=== PATIENT | male | born 1935 | race Caucasian/White ===

== ENCOUNTER 2017-08-17 19:43 | Inpatient (IN) | payer MEDICARE, BC ==
[~2017-08-17] VITALS: Ht 170.2 cm; Wt 68.5 kg
[~2017-08-17 19:43] MED LIST: ALLO100T PO; HYDROXYUREA PO; IBUP-1955 PO; LORA-259 PO; LOSA50TA3 PO; NEXIUM; TRILIPIX; ZANTAC PO
--- NOTE | 2017-08-17 20:05 | NUR ---
RAINE RA FROM HOME. PT IS A 81 Y/O MALE. ACCOMPANIED BY FAMILY AT BEDSIDE. HERE FOR: FEVER, GENERALIZED WEAKNESS. PT HAVE A TEMP OF 102F. MEDICATION ADMINISTERED ORDERED. PT VERBALIZED THAT HE DENIES ANY PAST MEDICAL HX. HOWEVER FAMILY VERBALIZED THAT HE WAS RECENTLY DIAGNOSED WITH LUNG DISEASE. PT IS SPEAKING IN SLOW SENTENCES. VERBALIZED "I FEEL TIRED". PT ALSO VERBALIZED THAT HE'S BEEN HAVING FREQUENT URINATION X 4 DAYS. WCTM PT AT THIS TIME. WAITING FOR FURTHER PLAN OF CARE
[2017-08-17] MEDS ORDERED: IBUPROFEN 600 MG TABLET PO ONE (20:06)
[2017-08-17] MEDS ORDERED: ACETAMINOPHEN ES 500 MG TABLET PO ONE (20:06)
[2017-08-17] MEDS ORDERED: CEFTRIAXONE 1 G in IV DEXTROSE 5% 50 ML IV ONE (20:13)
[2017-08-17] MEDS ORDERED: IV NS 1000 ML 1,000 ML IV ONE ×2 (20:15→22:00)
[2017-08-17] MEDS ORDERED: ACETAMINOPHEN ES 500 MG TABLET ONE (20:48)
[2017-08-17] MEDS ORDERED: IBUPROFEN 600 MG TABLET ONE (20:48)
[2017-08-17] MEDS ORDERED: CEFTRIAXONE 1 G VIAL ONE (21:08)
[2017-08-17 21:14] LABS: BASOPHILS # (AUTO) 0.2 K/uL (0.0-8.0); EOSINOPHILS # (AUTO) 0.5 K/uL (0.0-0.7); HEMATOCRIT 39.1 % (40-50); HEMOGLOBIN 12.5 G/DL (14.0-18.0); LYMPHOCYTES # (AUTO) 1.1 K/UL (0.8-4.8); LYMPHOCYTES % (AUTO) 4.7 % (20.5-51.5); MEAN CORPUSCULAR HEMOGLOBIN 28.4 UUG (27.0-31.0); MEAN CORPUSCULAR HGB CONC 32 g/dL (32.0-37.0); MONOCYTES # (AUTO) 0.6 K/UL (0.1-1.30); MONOCYTES % (AUTO) 2.5 % (0.0-11.0); NEUTROPHILS # (AUTO) 21.7 K/UL (1.8-8.9); NEUTROPHILS % (AUTO) 89.8 % (38.5-71.5); PLATELET COUNT (AUTO) 426 K/UL (150-450); WHITE BLOOD COUNT (AUTO) 24.1 K/UL (4.0-11.2)
[2017-08-17 21:15] LABS: CARBON DIOXIDE 24 mmol/L (21-32); CHLORIDE 103 mmol/L (98-107); CREATININE 1.3 mg/dL (0.6-1.3); GLUCOSE 83 mg/dL (74-106); POTASSIUM 4.3 mmol/L (3.5-5.1); UREA NITROGEN, BLOOD 38 mg/dL (7-18)
[2017-08-17 21:21] LABS: ALANINE AMINOTRANSFERASE 14 U/L (16-63); ALKALINE PHOSPHATASE 84 U/L (50-136); ASPARTATE AMINOTRANSFERASE 14 U/L (15-37); BILIRUBIN,TOTAL 0.4 mg/dL (0.2-1.0); CREATINE KINASE, TOTAL 31 U/L (39-308); TOTAL PROTEIN, SERUM 5.9 g/dL (6.4-8.2)
[2017-08-17 21:30] LABS: EOSINOPHILS % (MANUAL) 3 % (0-8); LYMPHOCYTES % (MANUAL) 10 % (20-40); MONOCYTES % (MANUAL) 10 % (2-10); NEUTROPHILS % (MANUAL) 77 % (42-75)
--- NOTE | 2017-08-17 21:42 | NUR ---
MD PEREZ AWARE OF PT'S ELEVATED WBC. ABX INFUSED. FLUIDS INFUSED. PER "NOT CODE SEPSIS"
[2017-08-17] MEDS ORDERED: VANCOMYCIN IV 1,000 MG in IV DEXTROSE 5% 250 ML IV ONE (21:45)
[2017-08-17 22:02] LABS: ABG BASE EXCESS -3.7 mmol/L; ABG HCO3 19.5 mmol/L; ABG PCO2 29.5 mmHg (35.0-45.0); ABG PH 7.438 (7.350-7.450); ABG PO2 63.8 mmHg (75.0-100.0); ABG SITE RIGHT RADIAL; ABG TOTAL HEMOGLOBIN 11.1 G/dL (13.5-18.0); COHb 1.2 % (0.5-1.5); MetHb 0.4 % (0.0-1.5); O2Hb 90.8 % (94.0-97.0); VENT MODE Room Air
[2017-08-17] MEDS ORDERED: VANCOMYCIN IV 200 ML ONE (22:04)
--- NOTE | 2017-08-17 22:29 | NUR ---
URINE COLLECTED AND SENT TO LAB. PT IS ABLE TO AMBULATE FROM BED TO REST ROOM WITH MJINIMAL ASSISTS. PT VERBALIZED OF FEELING "BETTER". FAMILY VERBALIZED THAT PT LOOKS BETTER. NAD NOTED PENDING ADMIT
[2017-08-17] MEDS ORDERED: HYDROCODONE/APAP 10-325 MG TABLET PO PRN (22:30)
[2017-08-17] MEDS ORDERED: IBUPROFEN 600 MG TABLET PO PRN (22:30)
[2017-08-17] MEDS ORDERED: CEFTRIAXONE 1 G in IV DEXTROSE 5% 50 ML IV SCH (22:30)
[2017-08-17] MEDS ORDERED: HYDROCODONE/APAP 5-325MG TABLET PO PRN (22:30)
[2017-08-17] MEDS ORDERED: MAGNESIUM HYDROXIDE 30 ML LIQUID UDC PO PRN (22:30)
[2017-08-17] MEDS ORDERED: ENOXAPARIN SODIUM 40 MG/0.4 ML DISP.SYRIN SQ SCH (22:30)
[2017-08-17] MEDS ORDERED: Z GUARD REMEDY PASTE 57 GM TUBE TOP PRN (22:30)
[2017-08-17 22:42] LABS: *BILIRUBIN,URIN NEGATIVE (NEGATIVE); *BLOOD, URINE NEGATIVE (NEGATIVE); *CLARITY,URINE SLIGHTLY CLOUDY (CLEAR); *COLOR,URINE YELLOW (YELLOW); *KETONES,URINE NEGATIVE (NEGATIVE); *PROTEIN,URINE NEGATIVE (NEGATIVE); *UROBILINOGEN,URINE 0.2 E.U./dl (NORMAL); LEUKOCYTE ESTERASE ,URINE NEGATIVE (NEGATIVE); NITRITE, URINE NEGATIVE (NEGATIVE); UGLUCOSE NEGATIVE (NEGATIVE)
[2017-08-17 22:45] LABS: BACTERIA,URINE NONE SEEN /HPF (NONE SEEN); RBC,URINE 0-3 /HPF (0-3); SQUAMOUS EPITHELIAL CELL,UR NONE SEEN /HPF (NONE SEEN); WBC,URINE 0-3 /HPF (0-3)
--- NOTE | 2017-08-17 23:34 | NUR ---
REPORT GIVEN BY ZAY BARRETT; RECIEVING NURSE IS AWARE OF PT'S CURRENT CONDITION. AND WILL CONTINUE FURTHER PLAN OF CARE. REPORT GIVEN TO NAFISA MCGREGOR AWARE OF PT'S CURRENT CONDITION
--- NOTE | 2017-08-17 23:45 | NUR ---
RECEIVED PATIENT VIA GURNEY FROM ER WITH AND DAUGHTER AT BEDSIDE. PATIENT IS A/O X4. DENIES PAIN OR DISCOMFORT. ON O2 2L NC SATING WELL. NO RESP. DISTRESS NOTED. PLACED ON TELE ORDERED, SR WITH BBB. HEPLOCK INTACT AND PATENT, NOTED TO RIGHT UPPER ARM #20 GAUGE. ORIENTED PATIENT TO ROOM AND CALL LIGHT. BED ALARM ON. CALL LIGHT IN REACH. ALL NEEDS ATTENDED. WILL CONTINUE TO MONITOR.
[2017-08-18] VITALS: BP 91/51
[2017-08-18] MEDS ORDERED: ANAGRELIDE HCL 0.5 MG CAPSULE PO SCH
--- NOTE | 2017-08-18 | NUR ---
PATIENTS BP 91/51. IT WAS REPORTED FROM ER THAT PATIENT IS RUNNING LOW WITH BLOOD PRESSURE. ALL OTHER VSS. AFEBRILE. WILL CONTINUE TO MONITOR.
[2017-08-18] MEDS ORDERED: SENNOSIDES 1 TABLET ONE (00:19)
[2017-08-18] MEDS ORDERED: GABAPENTIN 400 MG CAPSULE ONE (00:20)
[2017-08-18] MEDS: GABAPENTIN 400 MG CAPSULE PO SCH ×2 (00:33→21:14)
[2017-08-18] MEDS: SENNOSIDES 1 TABLET PO SCH ×2 (00:33→21:14)
[2017-08-18] MEDS: IV NS 1000 ML 1,000 ML IV PRN ×2 (00:35→18:23)
[2017-08-18] MEDS ORDERED: TRAZODONE 50 MG TABLET ONE (01:09)
[2017-08-18 04:00] VITALS: BP 91/54
--- NOTE | 2017-08-18 06:30 | NUR ---
PATIENT AWAKE IN BED. ON TELE SR WITH BBB. IVF INFUSING ORDERED. CALL LIGHT IN REACH. ALL NEEDS ATTENDED.
[2017-08-18 06:47] LABS: CARBON DIOXIDE 21 mmol/L (21-32); CHLORIDE 108 mmol/L (98-107); CREATININE 1.2 mg/dL (0.6-1.3); GLUCOSE 97 mg/dL (74-106); MAGNESIUM 1.6 mg/dL (1.8-2.4); PHOSPHOROUS 4.2 mg/dL (2.5-4.9); UREA NITROGEN, BLOOD 34 mg/dL (7-18)
[2017-08-18 06:54] LABS: BASOPHILS # (AUTO) 0.3 K/uL (0.0-8.0); BASOPHILS % (AUTO) 1.4 % (0.0-2.0); EOSINOPHILS # (AUTO) 0.2 K/uL (0.0-0.7); EOSINOPHILS % (AUTO) 1.3 % (0.0-7.0); HEMATOCRIT 33.9 % (36.7-47.1); HEMOGLOBIN 10.7 g/dL (12.5-16.3); LYMPHOCYTES # (AUTO) 1.1 K/uL (20.0-40.0); LYMPHOCYTES % (AUTO) 5.7 % (20.5-51.5); MEAN CORPUSCULAR HEMOGLOBIN 28.6 uug (23.8-33.4); MEAN CORPUSCULAR HGB CONC 32 g/dL (32.5-36.3); MEAN CORPUSCULAR VOLUME 90.6 fL (73.0-96.2); MONOCYTES # (AUTO) 0.7 K/uL (2.0-10.0); MONOCYTES % (AUTO) 3.8 % (0.0-11.0); NEUTROPHILS # (AUTO) 17.3 K/uL (1.8-8.9); NEUTROPHILS % (AUTO) 87.8 % (38.5-71.5); PLATELET COUNT (AUTO) 320 K/uL (152-348); RED BLOOD CELL COUNT(AUTO) 3.74 MIL/uL (4.06-5.63); WHITE BLOOD COUNT (AUTO) 19.7 K/uL (3.6-10.2)
[2017-08-18] MEDS ORDERED: IBUPROFEN 400 MG TABLET PO PRN (08:30)
[2017-08-18] MEDS: LOSARTAN POTASSIUM 50 MG TABLET PO SCH (08:53)
[2017-08-18] MEDS: ALLOPURINOL 100 MG TABLET PO SCH (08:53)
[2017-08-18] MEDS: PANTOPRAZOLE SODIUM 40 MG TABLET.DR PO SCH (08:53)
[2017-08-18] MEDS ORDERED: HYDROXYUREA 500 MG CAPSULE PO SCH (09:00)
[2017-08-18] MEDS ORDERED: GABA600T2 PO (10:03)
[2017-08-18] MEDS ORDERED: FENO45CA PO (10:03)
[2017-08-18] MEDS ORDERED: DEXL60CA3 PO (10:06)
[2017-08-18] MEDS ORDERED: ANAG0.5C3 PO (10:06)
[2017-08-18] MEDS ORDERED: ONDA4TAB8 PO (10:19)
--- NOTE | 2017-08-18 10:28 | NUR ---
PATIENT SEEN AND EXAMINED BY DR IRVING WITH NEW ORDERS AND NOTED MAG LEVEL IS 1.6 MD AWARE WITH ORDERS.
[2017-08-18] MEDS: MAGNESIUM SULFATE/D5W 100 ML IV SCH ×2 (10:35→11:51)
[2017-08-18 10:48] LABS: BAND % (MANUAL) 1 % (0-10); LYMPHOCYTES % (MANUAL) 5 % (20-40); MONOCYTES % (MANUAL) 5 % (2-10); NEUTROPHILS % (MANUAL) 89 % (42-75)
[2017-08-18 11:00] VITALS: BP 124/63
[2017-08-18] MEDS: ONDANSETRON 4 MG/2 ML VIAL IV PRN ×2 (13:03→21:29)
--- NOTE | 2017-08-18 13:18 | NUR ---
PATIENTS HERE AND DR IRVING WENT BACK INTO THE ROOM SPOKE WITH HER UPDATED HER ON PATIENTS CONDITION AND ALSO TOOK THE PHONE NUMBER OF THE PATIENT [facility] AND STATED WILL CALL AND UPDATE HIM.
--- NOTE | 2017-08-18 13:43 | NUR ---
NEW ORDERS NOTED FOR CT OF THE ABDOMEN PELVIS AND CHEST FROM DR IRVING AND PATIENT EDUCATED AND CONSCENT OBTAINED AND DOCUMENTED.
[2017-08-18] MEDS ORDERED: IV NORMAL SALINE 250 ML IV ONE (13:54)
[2017-08-18] MEDS ORDERED: IOHEXOL 300MG/ML 100 ML INFUS..BTL ONE (13:54)
[2017-08-18] MEDS: ACETAMINOPHEN 325 MG TABLET PO PRN ×2 (15:03→21:14)
--- NOTE | 2017-08-18 15:10 | NUR ---
TEMP AT THIS TIME IS 100.7 PATIENT MEDICATED WITH TYLENOL AND COOLING MEASURES STARTED PATIENTS HERE AT THE BEDSIDE AND STATED THAT PATIENT TAKES TERSALON PERLS AT HOME AND NOW HE IS STARTING TO COUGH BUT PATIENT HAS NO ORDER PAGED DR IRVING AND LEFT HIM A MESSAGE WITH THERESA JIMENEZ NOT AVAILABLE WILL RETURN CALL.
[2017-08-18 15:30] VITALS: BP 117/59
--- NOTE | 2017-08-18 17:15 | NUR ---
DINNER SERVED AND HE ATE WITH GOOD APPETITE WITH ADEQUATE FLUIDS INTAKE MADE COMFORTABLE.
--- NOTE | 2017-08-18 18:26 | NUR ---
IV SITE INFILTERATED RESTARTED TO HIS LEFT UPPER ARM WITH ONE ATTEMPT.CONTINUE ON IVF ORDERED UP AND ASSITED TO THE BATHROOM PATIENT STATED FEELING BETTER AT THIS TIME.
--- NOTE | 2017-08-18 20:00 | NUR ---
RECEIVED PATIENT AWAKE IN BED. A/O X4. DENIES PAIN OR DISCOMFORT. ON O2 2L NC. NO RESP. DISTRESS NOTED. IVF INFUSING WELL, CALL LIGHT IN REACH. ALL NEEDS ATTENDED. WILL CONTINUE TO MONITOR.
[2017-08-18 20:30] VITALS: BP 98/59
[2017-08-18] MEDS ORDERED: CEFEPIME HCL 1 G in IV DEXTROSE 5% 50 ML IV SCH (21:00)
[2017-08-18] MEDS: AZITHROMYCIN 250 MG TABLET PO SCH (21:14)
[2017-08-18] MEDS: DOCUSATE SODIUM 250 MG CAPSULE PO SCH (21:14)
[2017-08-18] MEDS: ANAGRELIDE HCL 0.5 MG CAPSULE PO SCH (21:14)
[2017-08-18] MEDS: HYDROXYUREA 500 MG CAPSULE PO SCH ×2 (21:16)
[2017-08-18] MEDS: CEFEPIME HCL 1 G in IV DEXTROSE 5% 50 ML IV SCH (21:29)
[2017-08-19] MEDS: TRAZODONE 50 MG TABLET PO PRN ×2 (00:41→23:09)
--- NOTE | 2017-08-19 06:00 | NUR ---
PT IN ROOM ALERT ORIENTED IN NO ACUTE DISTRESS. PT NO FEVER OR C/O PAIN AT THIS TIME. PT CONTINUES WITH PRODUCTIVE COUGH BUT DENIES ANY SOB. CALL LIGHT PLACED WITHIN REACH. CONTINUE TO MONITOR.
[2017-08-19] MEDS: PANTOPRAZOLE SODIUM 40 MG TABLET.DR PO SCH (06:18)
--- NOTE | 2017-08-19 07:10 | NUR ---
received report from shift supervisor film processing nurse, patient in bed asleep, no evidence of distress noted, bed in low position, side rails up x2.
[2017-08-19 07:19] LABS: CARBON DIOXIDE 21 mmol/L (21-32); CHLORIDE 107 mmol/L (98-107); CREATININE 1.1 mg/dL (0.6-1.3); GLUCOSE 86 mg/dL (74-106); PHOSPHOROUS 3.3 mg/dL (2.5-4.9); POTASSIUM 3.9 mmol/L (3.5-5.1); UREA NITROGEN, BLOOD 26 mg/dL (7-18)
[2017-08-19 07:51] LABS: BASOPHILS # (AUTO) 0.1 K/uL (0.0-8.0); BASOPHILS % (AUTO) 0.6 % (0.0-2.0); EOSINOPHILS # (AUTO) 0.2 K/uL (0.0-0.7); HEMATOCRIT 35.8 % (36.7-47.1); HEMOGLOBIN 11.2 g/dL (12.5-16.3); LYMPHOCYTES # (AUTO) 1.1 K/uL (20.0-40.0); LYMPHOCYTES % (AUTO) 5.4 % (20.5-51.5); MEAN CORPUSCULAR HEMOGLOBIN 28.1 uug (23.8-33.4); MEAN CORPUSCULAR HGB CONC 31 g/dL (32.5-36.3); MEAN CORPUSCULAR VOLUME 90.3 fL (73.0-96.2); MONOCYTES # (AUTO) 1.2 K/uL (2.0-10.0); MONOCYTES % (AUTO) 5.9 % (0.0-11.0); NEUTROPHILS # (AUTO) 17.1 K/uL (1.8-8.9); NEUTROPHILS % (AUTO) 87.1 % (38.5-71.5); PLATELET COUNT (AUTO) 295 K/uL (152-348); RED BLOOD CELL COUNT(AUTO) 3.97 MIL/uL (4.06-5.63); WHITE BLOOD COUNT (AUTO) 19.6 K/uL (3.6-10.2)
[2017-08-19] MEDS: IV NS 1000 ML 1,000 ML IV PRN ×2 (08:23→22:23)
[2017-08-19] MEDS: ALLOPURINOL 100 MG TABLET PO SCH (08:33)
[2017-08-19] MEDS: LOSARTAN POTASSIUM 50 MG TABLET PO SCH ×2 (08:33→08:40)
[2017-08-19] MEDS: FENOFIBRATE NANOCRYSTALLIZED 48 MG TABLET PO SCH (08:34)
[2017-08-19 11:08] LABS: BAND % (MANUAL) 2 % (0-10); EOSINOPHILS % (MANUAL) 1 % (0-8); LYMPHOCYTES % (MANUAL) 5 % (20-40); MONOCYTES % (MANUAL) 6 % (2-10); NEUTROPHILS % (MANUAL) 86 % (42-75)
[2017-08-19 11:39] VITALS: BP 109/63
[2017-08-19 16:17] VITALS: BP 113/65
--- NOTE | 2017-08-19 16:21 | NUR ---
Trigger for Sepsis. Patient is 81 y/o male who present with c/o of weakness and fever. Per MD notes, SIRS with fever and leukocytosis, poss early sepsis Tolerating current diet, PO intake has been improving ,eating 50-100% of meals Anthropometry:current weight is 140lb,BMI 21.9,physical assessment report suggest no overt malnutrition. Labs:WBC-19.6(H)-trending down, RBC-3.97(L),HGB/HCT-11.2/35.8(L/L),BUN-26,ALBUMIN-2.8 Medication:Colace,IVFD5%,Protonix, DNI Protonix to be administered 1hr before or 1hr after food nutrition diagnosis: Altered nutrition labs related to likely early Sepsis vs other factors as evidenced by WBC 24 on 08/17 nutrition intervention: no intervention at this time, monitor PO intake,weight and labs Monitor:PO intake,weight,labs Outcomes: maintain 75-100% of PO intake during hospital stay Improve in labs no N/V/D/C Addendum: 08/19/17 at [address] Amended: Links added.
[2017-08-19] MEDS: SENNOSIDES 1 TABLET PO SCH (16:53)
[2017-08-19] MEDS: ONDANSETRON 4 MG/2 ML VIAL IV PRN (16:53)
--- NOTE | 2017-08-19 18:41 | NUR ---
Patient has been anxious throughout shift, with multiple concerns about having a manicure and going to the restroom, and oxygen. He is cooperative, but very adamant about having things a certain way. Otherwise, patient is in no distress, mild productive cough, ambulates with standby assist.
--- NOTE | 2017-08-19 19:30 | NUR ---
PT RECEIVED IN BED, AWAKE. A/OX3. ABLE TO MAKE NEEDS KNOWN. PLEASANT ON APPROACH. IN STABLE CONDITION. NO C/O PAIN AT THIS TIME. IVF INFUSING. ON 2L NC, TOLERATING WELL. AFEBRILE. SAFETY MEASURES IMPLEMENTED. CALL LIGHT WITHIN REACH.
[2017-08-19 20:00] VITALS: BP 120/56
[2017-08-19] MEDS: CEFEPIME HCL 1 G in IV DEXTROSE 5% 50 ML IV SCH (20:04)
[2017-08-19] MEDS: DOCUSATE SODIUM 250 MG CAPSULE PO SCH (20:04)
[2017-08-19] MEDS: ANAGRELIDE HCL 0.5 MG CAPSULE PO SCH (20:04)
[2017-08-19] MEDS: AZITHROMYCIN 250 MG TABLET PO SCH (20:04)
[2017-08-19] MEDS: GABAPENTIN 400 MG CAPSULE PO SCH (20:04)
[2017-08-19] MEDS: HYDROXYUREA 500 MG CAPSULE PO SCH (20:09)
--- NOTE | 2017-08-19 21:00 | NUR ---
ADMINISTERED TYLENOL FOR FEVER OF 99.4. ROOM TEMPERATURE COOLED. BLANKETS REMOVED. WILL CONTINUE TO MONITOR.
[2017-08-19] MEDS: ACETAMINOPHEN 325 MG TABLET PO PRN (21:05)
[2017-08-19] MEDS: LORAZEPAM 1 MG TABLET PO PRN (22:23)
--- NOTE | 2017-08-19 22:25 | NUR ---
PT STATES HE FEELS ANXIOUS, RESTLESS IN BED. PT REQUEST ATIVAN. ADMINISTERED ORDERED. WILL CONT TO MONITOR.
--- NOTE | 2017-08-19 22:54 | NUR ---
PT NOW AFEBRILE. TEMP OF 97.9F
--- NOTE | 2017-08-20 | NUR ---
PT KEPT NPO AFTER MIDNIGHT DUE TO SCHEDULED ABDOMINAL ULTRASOUND
[2017-08-20 05:20] VITALS: BP 129/78
--- NOTE | 2017-08-20 05:44 | NUR ---
END OF SHIFT NOTES. PT SLEPT INTERMITTENTLY THROUGHOUT THE NIGHT. IN STABLE CONDITION. IV ABX INFUSED. IVF INFUSING. CONT ON 2L NC, TOLERATING WELL. AFEBRILE. ALL NEEDS ATTENDED. SAFETY MAINTAINED. CALL LIGHT WITHIN REACH.
[2017-08-20] MEDS: PANTOPRAZOLE SODIUM 40 MG TABLET.DR PO SCH (06:03)
--- NOTE | 2017-08-20 07:00 | NUR ---
RECEIVED REPORT FROM LAMINATOR NURSE, PATIENT IN BED ASLEEP, NO EVIDENCE OF DISTRESS NOTED, BED IN LOW POSITION, SIDE RAILS UP X2. BED ALARM ON.
[2017-08-20] MEDS: ALLOPURINOL 100 MG TABLET PO SCH (09:03)
[2017-08-20] MEDS: FENOFIBRATE NANOCRYSTALLIZED 48 MG TABLET PO SCH (09:03)
[2017-08-20] MEDS: LOSARTAN POTASSIUM 50 MG TABLET PO SCH (09:03)
[2017-08-20 11:19] VITALS: BP 130/76
[2017-08-20 15:00] VITALS: BP 117/64
--- NOTE | 2017-08-20 17:00 | NUR ---
patient removed IV from his arm. replaced with new on right forearm.
[2017-08-20] MEDS: SENNOSIDES 1 TABLET PO SCH (17:21)
[2017-08-20] MEDS: LORAZEPAM 1 MG TABLET PO PRN (18:01)
[2017-08-20] MEDS: ONDANSETRON 4 MG/2 ML VIAL IV PRN (18:02)
--- NOTE | 2017-08-20 18:52 | NUR ---
patient has had multiple requests and anxiety throughout the day. He continues to have urinary urgency and tries to get out of bed without assistance. Patient is unsteady on his feet, and needs frequent reminding that he must call for help. Patient is currently in no distress bed in low position, side rails up x2.
--- NOTE | 2017-08-20 19:30 | NUR ---
PT RECEIVED IN BED, AWAKE. A/OX3. ABLE TO MAKE NEEDS KNOWN. V/S STABLE. IN NO ACUTE DISTRESS. NO C/O PAIN AT THIS TIME. IVF INFUSING. ON 2LNC, TOLERATING WELL. SAFETY MEASURES IMPLEMENTED. BED ALARM SET. CALL LIGHT WITHIN REACH.
[2017-08-20 20:00] VITALS: BP 128/83
[2017-08-20] MEDS: CEFEPIME HCL 1 G in IV DEXTROSE 5% 50 ML IV SCH (20:12)
[2017-08-20] MEDS: ANAGRELIDE HCL 0.5 MG CAPSULE PO SCH (20:14)
[2017-08-20] MEDS: GABAPENTIN 400 MG CAPSULE PO SCH (20:14)
[2017-08-20] MEDS: AZITHROMYCIN 250 MG TABLET PO SCH (20:14)
[2017-08-20] MEDS: DOCUSATE SODIUM 250 MG CAPSULE PO SCH (20:19)
[2017-08-20] MEDS: HYDROXYUREA 500 MG CAPSULE PO SCH (20:19)
[2017-08-20] MEDS ORDERED: FUROSEMIDE 40 MG/4 ML VIAL IV ONE (20:45)
[2017-08-20] MEDS: TRAZODONE 50 MG TABLET PO PRN (22:04)
[2017-08-21 05:08] VITALS: BP 99/50
[2017-08-21] MEDS: PANTOPRAZOLE SODIUM 40 MG TABLET.DR PO SCH (06:17)
--- NOTE | 2017-08-21 06:25 | NUR ---
END OF SHIFT NOTES. PT SLEPT INTERMITTENTLY THROUGHOUT SHIFT. IN STABLE CONDITION. PT SEEN TRYING TO GO TO BATHROOM WITHOUT ASSIST AND INCREASING CONFUSION. DIAPER PLACED DUE TO INCREASED URINATION. BED ALARM WAS SET. PT SAFETY MAINTAINED. IV INTACT AND PATENT. IV FLUIDS D/C. ON 2L NC, NO C/O OF SOB. ALL NEEDS ATTENDED. CALL LIGHT WITHIN REACH.
[2017-08-21 07:06] LABS: BASOPHILS # (AUTO) 0.3 K/uL (0.0-8.0); BASOPHILS % (AUTO) 1.6 % (0.0-2.0); EOSINOPHILS # (AUTO) 0.3 K/uL (0.0-0.7); EOSINOPHILS % (AUTO) 1.4 % (0.0-7.0); HEMATOCRIT 36.8 % (36.7-47.1); HEMOGLOBIN 11.6 g/dL (12.5-16.3); LYMPHOCYTES # (AUTO) 1.1 K/uL (20.0-40.0); LYMPHOCYTES % (AUTO) 6.4 % (20.5-51.5); MEAN CORPUSCULAR HGB CONC 31 g/dL (32.5-36.3); MEAN CORPUSCULAR VOLUME 89.4 fL (73.0-96.2); MONOCYTES # (AUTO) 1.8 K/uL (2.0-10.0); MONOCYTES % (AUTO) 9.8 % (0.0-11.0); NEUTROPHILS # (AUTO) 14.4 K/uL (1.8-8.9); NEUTROPHILS % (AUTO) 80.8 % (38.5-71.5); PLATELET COUNT (AUTO) 252 K/uL (152-348); RED BLOOD CELL COUNT(AUTO) 4.12 MIL/uL (4.06-5.63); WHITE BLOOD COUNT (AUTO) 17.8 K/uL (3.6-10.2)
--- NOTE | 2017-08-21 07:10 | NUR ---
RECEIVED REPORT FROM NIGHT SHFIT NURSE, PATIENT IN BED ASLEEP, NO EVIDENCE OF DISTRESS NOTED, BED IN LOW POSITION, SIDE RAILS UP X2. BED ALARM SET.
[2017-08-21 07:17] LABS: CARBON DIOXIDE 22 mmol/L (21-32); CHLORIDE 105 mmol/L (98-107); CREATININE 1.2 mg/dL (0.6-1.3); GLUCOSE 81 mg/dL (74-106); MAGNESIUM 1.7 mg/dL (1.8-2.4); PHOSPHOROUS 3.2 mg/dL (2.5-4.9); POTASSIUM 3.9 mmol/L (3.5-5.1); UREA NITROGEN, BLOOD 18 mg/dL (7-18)
[2017-08-21 08:18] VITALS: BP 93/51
[2017-08-21] MEDS: LOSARTAN POTASSIUM 50 MG TABLET PO SCH (08:24)
[2017-08-21] MEDS: ONDANSETRON 4 MG/2 ML VIAL IV PRN ×2 (08:25→17:26)
[2017-08-21] MEDS: ALLOPURINOL 100 MG TABLET PO SCH (08:25)
[2017-08-21] MEDS: FENOFIBRATE NANOCRYSTALLIZED 48 MG TABLET PO SCH (08:37)
[2017-08-21 10:40] LABS: BAND % (MANUAL) 1 % (0-10); BASOPHILS % (MANUAL) 1 % (0-2); EOSINOPHILS % (MANUAL) 2 % (0-8); LYMPHOCYTES % (MANUAL) 6 % (20-40); MONOCYTES % (MANUAL) 12 % (2-10); NEUTROPHILS % (MANUAL) 78 % (42-75)
[2017-08-21 11:05] VITALS: BP 97/54
[2017-08-21] MEDS ORDERED: ANAG0.5C3 PO (14:00)
[2017-08-21] MEDS ORDERED: AZIT250T6 PO (14:00)
[2017-08-21] MEDS ORDERED: CEFE1VIA10 IV (14:00)
--- NOTE | 2017-08-21 14:30 | NUR ---
PATIENT WAS EVALUATED BY PHYSICAL THERAPY. UNABLE TO AMBULATE MORE THAN 50 FEET.
[2017-08-21] MEDS: MAGNESIUM SULFATE/D5W 100 ML IV SCH ×2 (14:58→17:02)
[2017-08-21 15:10] VITALS: BP 106/67
[2017-08-21] MEDS: SENNOSIDES 1 TABLET PO SCH (17:06)
--- NOTE | 2017-08-21 18:13 | NUR ---
PATIENT IS IN BED, NO EVIDENCE OF DISTRESS NOTED, BED IN LOW POSITION, SIDE RAILS UP X2. BED ALARM ON. PATIENT HASN'T TOLERATED MEALS WELL. NAUSEA PRESENT AT BREAKFAST AND DINNER TIME. FAMILY BROUGHT IN SHAKES FOR THE PATIENT.
--- NOTE | 2017-08-21 18:15 | NUR ---
NO MALE BED AVAILABLE IN ARU, PATIENT WILL BE TRANSFERRED TOMORROW MORNING.
[2017-08-21 20:00] VITALS: BP 100/59
[2017-08-21] MEDS: DOCUSATE SODIUM 250 MG CAPSULE PO SCH (20:40)
[2017-08-21] MEDS: GABAPENTIN 400 MG CAPSULE PO SCH (20:41)
[2017-08-21] MEDS: AZITHROMYCIN 250 MG TABLET PO SCH (20:41)
[2017-08-21] MEDS: HYDROXYUREA 500 MG CAPSULE PO SCH (20:42)
[2017-08-21] MEDS: CEFEPIME HCL 1 G in IV DEXTROSE 5% 50 ML IV SCH (20:43)
[2017-08-21] MEDS: ANAGRELIDE HCL 0.5 MG CAPSULE PO SCH (20:44)
[2017-08-21] MEDS: LORAZEPAM 1 MG TABLET PO PRN (23:40)
[2017-08-22] MEDS: TRAZODONE 50 MG TABLET PO PRN (00:35)
[2017-08-22 05:08] VITALS: BP 97/58
[2017-08-22] MEDS: PANTOPRAZOLE SODIUM 40 MG TABLET.DR PO SCH (06:28)
[2017-08-22 06:46] LABS: CARBON DIOXIDE 22 mmol/L (21-32); CHLORIDE 104 mmol/L (98-107); CREATININE 1.2 mg/dL (0.6-1.3); GLUCOSE 86 mg/dL (74-106); POTASSIUM 4.1 mmol/L (3.5-5.1); UREA NITROGEN, BLOOD 18 mg/dL (7-18)
[2017-08-22] MEDS: FENOFIBRATE NANOCRYSTALLIZED 48 MG TABLET PO SCH (08:19)
[2017-08-22] MEDS: ALLOPURINOL 100 MG TABLET PO SCH (08:19)
[2017-08-22] MEDS: LOSARTAN POTASSIUM 50 MG TABLET PO SCH (08:20)
--- NOTE | 2017-08-22 08:30 | NUR ---
AWAKE ALERT ORTX3 SOME FORGETFUL BUT ABLE TO FOLLOW SIMPLE DIRECTION WELL NO SOB OR PAIN EAT BREAKFAST MOD AMT ON FALL /ASPIRATION PRECAUTION CALL ROUSE IN REACH AND BED ALARM ON
[2017-08-22 09:05] LABS: BASOPHILS # (AUTO) 0.3 K/uL (0.0-8.0); BASOPHILS % (AUTO) 1.4 % (0.0-2.0); EOSINOPHILS # (AUTO) 0.4 K/uL (0.0-0.7); HEMATOCRIT 33.9 % (36.7-47.1); HEMOGLOBIN 10.6 g/dL (12.5-16.3); LYMPHOCYTES # (AUTO) 1.2 K/uL (20.0-40.0); LYMPHOCYTES % (AUTO) 6.4 % (20.5-51.5); MEAN CORPUSCULAR HEMOGLOBIN 28.2 uug (23.8-33.4); MEAN CORPUSCULAR HGB CONC 31 g/dL (32.5-36.3); MEAN CORPUSCULAR VOLUME 89.9 fL (73.0-96.2); MONOCYTES # (AUTO) 1.5 K/uL (2.0-10.0); MONOCYTES % (AUTO) 8.1 % (0.0-11.0); NEUTROPHILS # (AUTO) 15.1 K/uL (1.8-8.9); NEUTROPHILS % (AUTO) 82.1 % (38.5-71.5); PLATELET COUNT (AUTO) 231 K/uL (152-348); RED BLOOD CELL COUNT(AUTO) 3.77 MIL/uL (4.06-5.63); WHITE BLOOD COUNT (AUTO) 18.4 K/uL (3.6-10.2)
[2017-08-22 11:00] VITALS: BP 92/56
--- NOTE | 2017-08-22 13:00 | NUR ---
BED WAS AVAILABLE AT [facility] TODAY PATIENT WAS INFORM OF D/C TO TODAY D/C INSTRUCTION REGARDING CONTINUE HOME MEDICINE AND NEED TO F/U WITH OWN PMD AND EDUCATION PK GIVEN ,VERBALIZES UNDERSTAND AND SIGNS D/C SHEET
--- NOTE | 2017-08-22 14:00 | NUR ---
REPORT GIVEN TO NURSE AT [facility]
[2017-08-22 14:07] LABS: BAND % (MANUAL) 2 % (0-10); BASOPHILS % (MANUAL) 1 % (0-2); LYMPHOCYTES % (MANUAL) 8 % (20-40); MONOCYTES % (MANUAL) 4 % (2-10); NEUTROPHILS % (MANUAL) 85 % (42-75)
--- NOTE | 2017-08-22 14:30 | NUR ---
FAMILY WAS INFORM OF TRANSFER /D/C TO ARU TODAY TO ROOM 124A CONDITION STABLE
--- NOTE | 2017-08-22 15:00 | NUR ---
D/C TO REHAB UNIT VIA W/C CONDITION STABLE ACCOMPANIES WITH
[2017-08-22] MEDS ORDERED: HYDR500C2 PO (17:08)
[2017-08-22] MEDS ORDERED: LACTOBACILLUS RHAMNOSUS GG 1 EACH CAPSULE PO SCH (21:00)
[2017-08-23] MEDS ORDERED: FLUT1BLS IH (17:34)
== END 2017-08-22 15:00 | DRG 871 ==
LOC: ER 19:45 → TELE 23:25 → MED 08-18 19:14
PROVIDERS: ADMIT Internal Medicine; ATTEND Internal Medicine
DX: A41.9 Sepsis, unspecified organism (principal); N17.0 Acute kidney failure with tubular necrosis; J69.0 Pneumonitis due to inhalation of food and vomit; E43 Unspecified severe protein-calorie malnutrition; J84.9 Interstitial pulmonary disease, unspecified; E88.09 Other disorders of plasma-protein metabolism, not elsewhere classified; R16.2 Hepatomegaly with splenomegaly, not elsewhere classified; D45 Polycythemia vera; D63.8 Anemia in other chronic diseases classified elsewhere; J98.11 Atelectasis; E83.42 Hypomagnesemia; E78.5 Hyperlipidemia, unspecified; G25.81 Restless legs syndrome; K21.9 Gastro-esophageal reflux disease without esophagitis; M19.90 Unspecified osteoarthritis, unspecified site; Z88.2 Allergy status to sulfonamides; M62.50 Muscle wasting and atrophy, not elsewhere classified, unspecified site; R53.1 Weakness; Z68.23 Body mass index [BMI] 23.0-23.9, adult; I10 Essential (primary) hypertension; M10.9 Gout, unspecified; Z96.652 Presence of left artificial knee joint
CPT/HCPCS: 36415; 36600; 70030-TC; 71010; 71260; 76705; 83605; 83735; 84100; 85025; 85610; 87040; 87070; 87400; 93005; 93307; 97116; 97530; A4663; J0692; J0696; J1940; J2405; J3370; J3475; J7030; J7050; J7060; Q0144; Q9967

== ENCOUNTER 2017-08-22 15:22 | Inpatient (IN) | payer MEDICARE, BC ==
[~2017-08-22] VITALS: Ht 170.2 cm; Wt 63.5 kg
[~2017-08-22 15:22] MED LIST changes: +ANAG0.5C3 PO; +AZIT250T13 PO; +CEFE1VIA10 IV; +DEXL60CA3 PO; +FENO45CA PO; +GABA600T2 PO; -LOSA50TA3 PO; -NEXIUM; +ONDA4TAB8 PO; -TRILIPIX
[2017-08-22 15:37] VITALS: BP 105/60
[2017-08-22] MEDS ORDERED: AZITHROMYCIN 250 MG TABLET PO SCH (16:45)
[2017-08-22] MEDS ORDERED: HYDR500C2 PO (17:08)
[2017-08-22] MEDS ORDERED: IBUPROFEN 600 MG TABLET PO PRN (18:30)
[2017-08-22] MEDS: SENNOSIDES 1 TABLET PO SCH ×2 (18:33→20:15)
[2017-08-22] MEDS: AZITHROMYCIN 250 MG TABLET PO SCH (19:21)
[2017-08-22] MEDS: ANAGRELIDE HCL 0.5 MG CAPSULE PO SCH (20:15)
[2017-08-22 20:26] VITALS: BP 105/64
[2017-08-22] MEDS: LORAZEPAM 1 MG TABLET PO PRN (20:52)
[2017-08-22] MEDS ORDERED: CEFEPIME HCL 1 G in IV DEXTROSE 5% 50 ML IV SCH (21:00)
[2017-08-22] MEDS ORDERED: LORAZEPAM 1 MG TABLET ONE (21:00)
[2017-08-22] MEDS ORDERED: ANAGRELIDE HCL 0.5 MG CAPSULE PO SCH (21:00)
[2017-08-22] MEDS: HYDROXYUREA 500 MG CAPSULE PO SCH (21:00)
[2017-08-23] MEDS ORDERED: LORAZEPAM 1 MG TABLET ONE (02:40)
[2017-08-23] MEDS ORDERED: CEFEPIME HCL 1 G VIAL ONE (03:00)
[2017-08-23] MEDS: LORAZEPAM 1 MG TABLET PO PRN ×2 (03:06→21:34)
[2017-08-23] MEDS ORDERED: CEFEPIME HCL 1 G in IV DEXTROSE 5% 50 ML IV SCH ×2 (06:00→12:00)
[2017-08-23 07:00] VITALS: BP 124/74
[2017-08-23] MEDS ORDERED: PANTOPRAZOLE SODIUM 40 MG TABLET.DR PO SCH (07:27)
[2017-08-23] MEDS ORDERED: IBUPROFEN 400 MG TABLET PO PRN (07:30)
[2017-08-23] MEDS ORDERED: FENOFIBRIC ACID 45 MG PO SCH (09:00)
[2017-08-23] MEDS ORDERED: ZANTAC 150 MG PO SCH (09:00)
[2017-08-23] MEDS ORDERED: ANAGRELIDE HCL 0.5 MG CAPSULE PO SCH ×2 (09:00)
[2017-08-23] MEDS: ALLOPURINOL 100 MG TABLET PO SCH (09:16)
[2017-08-23] MEDS: FENOFIBRATE NANOCRYSTALLIZED 48 MG TABLET PO SCH (12:31)
[2017-08-23] MEDS: CEFEPIME HCL 1 G in IV DEXTROSE 5% 50 ML IV SCH (17:33)
[2017-08-23] MEDS ORDERED: FLUT1BLS IH (17:34)
[2017-08-23] MEDS: AZITHROMYCIN 250 MG TABLET PO SCH (17:35)
[2017-08-23 19:30] VITALS: BP 120/73
[2017-08-23] MEDS: SENNOSIDES 1 TABLET PO SCH (21:29)
[2017-08-23] MEDS: ONDANSETRON ODT 4 MG TAB.RAPDIS SL SCH (21:30)
[2017-08-23] MEDS: FAMOTIDINE 20 MG TABLET PO SCH (21:30)
[2017-08-23] MEDS: GABAPENTIN 400 MG CAPSULE PO SCH (21:30)
[2017-08-23] MEDS: ANAGRELIDE HCL 0.5 MG CAPSULE PO SCH (21:31)
[2017-08-23] MEDS: TRAZODONE 50 MG TABLET PO SCH (21:31)
[2017-08-23] MEDS: HYDROXYUREA 500 MG CAPSULE PO SCH (21:33)
[2017-08-24] MEDS: LORAZEPAM 1 MG TABLET PO PRN (03:22)
[2017-08-24] MEDS: CEFEPIME HCL 1 G in IV DEXTROSE 5% 50 ML IV SCH ×2 (05:03→17:36)
[2017-08-24 07:05] LABS: BASOPHILS # (AUTO) 0.6 K/uL (0.0-8.0); BASOPHILS % (AUTO) 3.3 % (0.0-2.0); EOSINOPHILS # (AUTO) 0.5 K/uL (0.0-0.7); EOSINOPHILS % (AUTO) 2.4 % (0.0-7.0); HEMATOCRIT 34.3 % (36.7-47.1); HEMOGLOBIN 10.9 g/dL (12.5-16.3); LYMPHOCYTES # (AUTO) 1.2 K/uL (20.0-40.0); LYMPHOCYTES % (AUTO) 6.1 % (20.5-51.5); MEAN CORPUSCULAR HEMOGLOBIN 28.7 uug (23.8-33.4); MEAN CORPUSCULAR HGB CONC 32 g/dL (32.5-36.3); MEAN CORPUSCULAR VOLUME 89.9 fL (73.0-96.2); MONOCYTES # (AUTO) 1.3 K/uL (2.0-10.0); NEUTROPHILS # (AUTO) 15.6 K/uL (1.8-8.9); NEUTROPHILS % (AUTO) 81.2 % (38.5-71.5); PLATELET COUNT (AUTO) 220 K/uL (152-348); RED BLOOD CELL COUNT(AUTO) 3.81 MIL/uL (4.06-5.63); WHITE BLOOD COUNT (AUTO) 19.3 K/uL (3.6-10.2)
[2017-08-24 07:35] LABS: CARBON DIOXIDE 22 mmol/L (21-32); CHLORIDE 102 mmol/L (98-107); CREATININE 1.2 mg/dL (0.6-1.3); GLUCOSE 82 mg/dL (74-106); MAGNESIUM 1.7 mg/dL (1.8-2.4); PHOSPHOROUS 3.4 mg/dL (2.5-4.9); POTASSIUM 4.1 mmol/L (3.5-5.1); UREA NITROGEN, BLOOD 17 mg/dL (7-18)
[2017-08-24 08:00] VITALS: BP 110/67
[2017-08-24] MEDS: ALLOPURINOL 100 MG TABLET PO SCH (09:17)
[2017-08-24] MEDS: FLUTICASONE/VILANTEROL 1 EACH BLST.W.DEV INH SCH (09:17)
[2017-08-24] MEDS: FENOFIBRATE NANOCRYSTALLIZED 48 MG TABLET PO SCH (09:17)
[2017-08-24] MEDS: FAMOTIDINE 20 MG TABLET PO SCH ×2 (09:17→20:35)
[2017-08-24] MEDS ORDERED: MAGNESIUM OXIDE 400 MG TABLET PO ONE (15:00)
[2017-08-24] MEDS: AZITHROMYCIN 250 MG TABLET PO SCH (17:33)
[2017-08-24 19:45] VITALS: BP 103/64
[2017-08-24] MEDS: GABAPENTIN 400 MG CAPSULE PO SCH (20:34)
[2017-08-24] MEDS: ONDANSETRON ODT 4 MG TAB.RAPDIS SL SCH (20:35)
[2017-08-24] MEDS: SENNOSIDES 1 TABLET PO SCH (20:35)
[2017-08-24] MEDS: ANAGRELIDE HCL 0.5 MG CAPSULE PO SCH (20:36)
[2017-08-24] MEDS: HYDROXYUREA 500 MG CAPSULE PO SCH (20:36)
[2017-08-24] MEDS: TRAZODONE 50 MG TABLET PO SCH (21:41)
[2017-08-24] MEDS: ACIDOPHILUS/BULGARICUS CHEW TAB PO SCH (21:41)
[2017-08-25] MEDS: CEFEPIME HCL 1 G in IV DEXTROSE 5% 50 ML IV SCH ×2 (05:58→17:16)
[2017-08-25] MEDS: ACIDOPHILUS/BULGARICUS CHEW TAB PO SCH ×3 (05:58→21:02)
[2017-08-25 07:54] VITALS: BP 90/58
[2017-08-25] MEDS: FAMOTIDINE 20 MG TABLET PO SCH ×2 (08:41→20:45)
[2017-08-25] MEDS: ALLOPURINOL 100 MG TABLET PO SCH (08:41)
[2017-08-25] MEDS: FLUTICASONE/VILANTEROL 1 EACH BLST.W.DEV INH SCH (08:41)
[2017-08-25] MEDS: FENOFIBRATE NANOCRYSTALLIZED 48 MG TABLET PO SCH (09:09)
[2017-08-25] MEDS ORDERED: SENNOSIDES 1 TABLET PO SCH (17:00)
[2017-08-25] MEDS: SENNOSIDES 1 TABLET PO SCH (17:15)
[2017-08-25] MEDS: AZITHROMYCIN 250 MG TABLET PO SCH (17:32)
[2017-08-25] MEDS ORDERED: LEVOFLOXACIN 500 MG TABLET PO SCH ×2 (18:00→18:15)
[2017-08-25] MEDS ORDERED: LEVOFLOXACIN 500 MG TABLET PO ONE ×2 (18:30→21:00)
[2017-08-25 19:30] VITALS: BP 111/65
[2017-08-25] MEDS: HYDROXYUREA 500 MG CAPSULE PO SCH (20:43)
[2017-08-25] MEDS: GABAPENTIN 400 MG CAPSULE PO SCH (20:44)
[2017-08-25] MEDS: ANAGRELIDE HCL 0.5 MG CAPSULE PO SCH (20:44)
[2017-08-25] MEDS: ONDANSETRON ODT 4 MG TAB.RAPDIS SL SCH (20:45)
[2017-08-26] MEDS: TRAZODONE 50 MG TABLET PO SCH (00:03)
[2017-08-26] MEDS: ACIDOPHILUS/BULGARICUS CHEW TAB PO SCH ×3 (06:18→21:01)
[2017-08-26 07:16] LABS: BASOPHILS # (AUTO) 0.2 K/uL (0.0-8.0); BASOPHILS % (AUTO) 0.8 % (0.0-2.0); EOSINOPHILS # (AUTO) 0.7 K/uL (0.0-0.7); EOSINOPHILS % (AUTO) 2.8 % (0.0-7.0); HEMATOCRIT 38.3 % (40-50); HEMOGLOBIN 11.8 G/DL (14.0-18.0); LYMPHOCYTES # (AUTO) 1.6 K/UL (0.8-4.8); LYMPHOCYTES % (AUTO) 6.4 % (20.5-51.5); MEAN CORPUSCULAR HGB CONC 31 g/dL (32.0-37.0); MONOCYTES # (AUTO) 1.1 K/UL (0.1-1.30); MONOCYTES % (AUTO) 4.2 % (0.0-11.0); NEUTROPHILS # (AUTO) 21.7 K/UL (1.8-8.9); NEUTROPHILS % (AUTO) 85.8 % (38.5-71.5); PLATELET COUNT (AUTO) 285 K/UL (150-450); RED BLOOD CELL COUNT(AUTO) 4.21 MIL/UL (4.7-6.1)
[2017-08-26 07:35] LABS: CARBON DIOXIDE 24 mmol/L (21-32); CHLORIDE 105 mmol/L (98-107); CREATININE 1.3 mg/dL (0.6-1.3); GLUCOSE 87 mg/dL (74-106); MAGNESIUM 1.9 mg/dL (1.8-2.4); PHOSPHOROUS 3.3 mg/dL (2.5-4.9); POTASSIUM 4.5 mmol/L (3.5-5.1); UREA NITROGEN, BLOOD 15 mg/dL (7-18)
[2017-08-26 08:12] LABS: WHITE BLOOD COUNT (AUTO) 25.3 K/UL (4.0-11.2)
[2017-08-26] MEDS: FLUTICASONE/VILANTEROL 1 EACH BLST.W.DEV INH SCH (09:00)
[2017-08-26] MEDS: FAMOTIDINE 20 MG TABLET PO SCH ×2 (10:04→21:01)
[2017-08-26] MEDS: ALLOPURINOL 100 MG TABLET PO SCH (10:04)
[2017-08-26] MEDS: FENOFIBRATE NANOCRYSTALLIZED 48 MG TABLET PO SCH (10:05)
[2017-08-26 11:01] LABS: BAND % (MANUAL) 2 % (0-10); EOSINOPHILS % (MANUAL) 3 % (0-8); LYMPHOCYTES % (MANUAL) 7 % (20-40); MONOCYTES % (MANUAL) 5 % (2-10); NEUTROPHILS % (MANUAL) 83 % (42-75)
[2017-08-26 11:28] VITALS: BP 98/48
[2017-08-26] MEDS: SENNOSIDES 1 TABLET PO SCH (16:59)
[2017-08-26 20:58] VITALS: BP 133/64
[2017-08-26] MEDS: ONDANSETRON ODT 4 MG TAB.RAPDIS SL SCH (21:02)
[2017-08-26] MEDS: GABAPENTIN 400 MG CAPSULE PO SCH (21:02)
[2017-08-26] MEDS: ANAGRELIDE HCL 0.5 MG CAPSULE PO SCH (21:04)
[2017-08-26] MEDS: HYDROXYUREA 500 MG CAPSULE PO SCH (21:09)
[2017-08-26] MEDS: CEFEPIME HCL 1 G in IV DEXTROSE 5% 50 ML IV SCH (21:24)
[2017-08-27] MEDS: TRAZODONE 50 MG TABLET PO SCH (00:04)
[2017-08-27] MEDS: ACIDOPHILUS/BULGARICUS CHEW TAB PO SCH ×3 (05:41→21:31)
[2017-08-27 08:58] VITALS: BP 106/64
[2017-08-27] MEDS: ASPIRIN 81 MG TAB.CHEW PO SCH ×2 (09:00→10:05)
[2017-08-27] MEDS: ALLOPURINOL 100 MG TABLET PO SCH (10:05)
[2017-08-27] MEDS: FAMOTIDINE 20 MG TABLET PO SCH ×2 (10:05→20:23)
[2017-08-27] MEDS: CEFEPIME HCL 1 G in IV DEXTROSE 5% 50 ML IV SCH ×2 (10:05→20:23)
[2017-08-27] MEDS: FENOFIBRATE NANOCRYSTALLIZED 48 MG TABLET PO SCH (10:06)
[2017-08-27] MEDS: FLUTICASONE/VILANTEROL 1 EACH BLST.W.DEV INH SCH (10:15)
[2017-08-27] MEDS: SENNOSIDES 1 TABLET PO SCH (17:08)
[2017-08-27] MEDS: ANAGRELIDE HCL 0.5 MG CAPSULE PO SCH (20:21)
[2017-08-27] MEDS: HYDROXYUREA 500 MG CAPSULE PO SCH (20:22)
[2017-08-27] MEDS: GABAPENTIN 400 MG CAPSULE PO SCH (20:22)
[2017-08-27] MEDS: ONDANSETRON ODT 4 MG TAB.RAPDIS SL SCH (20:23)
[2017-08-27 21:18] VITALS: BP 109/70
[2017-08-28] MEDS: TRAZODONE 50 MG TABLET PO SCH (00:42)
[2017-08-28] MEDS: ACIDOPHILUS/BULGARICUS CHEW TAB PO SCH ×3 (06:08→21:04)
[2017-08-28 07:50] LABS: BASOPHILS # (AUTO) 0.7 K/uL (0.0-8.0); BASOPHILS % (AUTO) 3.8 % (0.0-2.0); CARBON DIOXIDE 27 mmol/L (21-32); CHLORIDE 107 mmol/L (98-107); CREATININE 1.4 mg/dL (0.6-1.3); EOSINOPHILS # (AUTO) 0.6 K/uL (0.0-0.7); GLUCOSE 91 mg/dL (74-106); HEMATOCRIT 36.1 % (36.7-47.1); HEMOGLOBIN 11.5 g/dL (12.5-16.3); LYMPHOCYTES # (AUTO) 1.3 K/uL (20.0-40.0); MEAN CORPUSCULAR HGB CONC 32 g/dL (32.5-36.3); MEAN CORPUSCULAR VOLUME 91.3 fL (73.0-96.2); MONOCYTES # (AUTO) 0.7 K/uL (2.0-10.0); MONOCYTES % (AUTO) 3.5 % (0.0-11.0); NEUTROPHILS # (AUTO) 15.9 K/uL (1.8-8.9); NEUTROPHILS % (AUTO) 82.7 % (38.5-71.5); PLATELET COUNT (AUTO) 382 K/uL (152-348); POTASSIUM 4.5 mmol/L (3.5-5.1); RED BLOOD CELL COUNT(AUTO) 3.96 MIL/uL (4.06-5.63); UREA NITROGEN, BLOOD 17 mg/dL (7-18); WHITE BLOOD COUNT (AUTO) 19.2 K/uL (3.6-10.2)
[2017-08-28] MEDS: ASPIRIN 81 MG TAB.CHEW PO SCH (09:00)
[2017-08-28] MEDS: FAMOTIDINE 20 MG TABLET PO SCH ×2 (09:20→21:04)
[2017-08-28] MEDS: ALLOPURINOL 100 MG TABLET PO SCH (09:20)
[2017-08-28] MEDS: FLUTICASONE/VILANTEROL 1 EACH BLST.W.DEV INH SCH (09:20)
[2017-08-28] MEDS: FENOFIBRATE NANOCRYSTALLIZED 48 MG TABLET PO SCH (09:21)
[2017-08-28] MEDS: CEFEPIME HCL 1 G in IV DEXTROSE 5% 50 ML IV SCH ×2 (09:21→20:33)
[2017-08-28 09:54] VITALS: BP 130/83
[2017-08-28 10:50] LABS: BAND % (MANUAL) 3 % (0-10); BASOPHILS % (MANUAL) 1 % (0-2); EOSINOPHILS % (MANUAL) 3 % (0-8); LYMPHOCYTES % (MANUAL) 7 % (20-40); MONOCYTES % (MANUAL) 6 % (2-10); NEUTROPHILS % (MANUAL) 80 % (42-75)
[2017-08-28] MEDS: SENNOSIDES 1 TABLET PO SCH (17:13)
[2017-08-28] MEDS: GABAPENTIN 400 MG CAPSULE PO SCH (20:28)
[2017-08-28] MEDS: ANAGRELIDE HCL 0.5 MG CAPSULE PO SCH (20:28)
[2017-08-28] MEDS: ONDANSETRON ODT 4 MG TAB.RAPDIS SL SCH (20:29)
[2017-08-28] MEDS: HYDROXYUREA 500 MG CAPSULE PO SCH (20:32)
[2017-08-28 21:38] VITALS: BP 106/67
[2017-08-29] MEDS: TRAZODONE 50 MG TABLET PO SCH (00:08)
[2017-08-29] MEDS: ACIDOPHILUS/BULGARICUS CHEW TAB PO SCH ×3 (05:59→21:03)
[2017-08-29 07:12] VITALS: BP 106/66
[2017-08-29] MEDS: ALLOPURINOL 100 MG TABLET PO SCH (08:51)
[2017-08-29] MEDS: FAMOTIDINE 20 MG TABLET PO SCH ×2 (08:51→21:03)
[2017-08-29] MEDS: FENOFIBRATE NANOCRYSTALLIZED 48 MG TABLET PO SCH (08:51)
[2017-08-29] MEDS: FLUTICASONE/VILANTEROL 1 EACH BLST.W.DEV INH SCH (08:51)
[2017-08-29] MEDS: CEFEPIME HCL 1 G in IV DEXTROSE 5% 50 ML IV SCH (08:52)
[2017-08-29] MEDS: ASPIRIN 81 MG TAB.CHEW PO SCH (08:52)
[2017-08-29] MEDS: SENNOSIDES 1 TABLET PO SCH (18:03)
[2017-08-29 19:30] VITALS: BP 104/56
[2017-08-29] MEDS: ONDANSETRON ODT 4 MG TAB.RAPDIS SL SCH (21:02)
[2017-08-29] MEDS: ANAGRELIDE HCL 0.5 MG CAPSULE PO SCH (21:03)
[2017-08-29] MEDS: GABAPENTIN 400 MG CAPSULE PO SCH (21:03)
[2017-08-29] MEDS: HYDROXYUREA 500 MG CAPSULE PO SCH (21:05)
[2017-08-30] MEDS: TRAZODONE 50 MG TABLET PO SCH (00:31)
[2017-08-30] MEDS: ACIDOPHILUS/BULGARICUS CHEW TAB PO SCH ×3 (05:55→21:07)
[2017-08-30 07:09] VITALS: BP 106/68
[2017-08-30] MEDS: FENOFIBRATE NANOCRYSTALLIZED 48 MG TABLET PO SCH (08:02)
[2017-08-30] MEDS: ASPIRIN 81 MG TAB.CHEW PO SCH (08:02)
[2017-08-30] MEDS: FLUTICASONE/VILANTEROL 1 EACH BLST.W.DEV INH SCH (08:02)
[2017-08-30] MEDS: ALLOPURINOL 100 MG TABLET PO SCH (08:02)
[2017-08-30] MEDS: FAMOTIDINE 20 MG TABLET PO SCH ×2 (08:02→20:35)
[2017-08-30] MEDS: SENNOSIDES 1 TABLET PO SCH (17:45)
[2017-08-30 19:30] VITALS: BP 103/63
[2017-08-30] MEDS: ONDANSETRON ODT 4 MG TAB.RAPDIS SL SCH (20:35)
[2017-08-30] MEDS: GABAPENTIN 400 MG CAPSULE PO SCH (20:35)
[2017-08-30] MEDS: ANAGRELIDE HCL 0.5 MG CAPSULE PO SCH (20:36)
[2017-08-30] MEDS: HYDROXYUREA 500 MG CAPSULE PO SCH (20:39)
[2017-08-31] MEDS: TRAZODONE 50 MG TABLET PO SCH (00:02)
[2017-08-31] MEDS: ACIDOPHILUS/BULGARICUS CHEW TAB PO SCH ×3 (06:12→21:17)
[2017-08-31 07:08] VITALS: BP 105/70
[2017-08-31] MEDS: ASPIRIN 81 MG TAB.CHEW PO SCH (09:00)
[2017-08-31] MEDS: FLUTICASONE/VILANTEROL 1 EACH BLST.W.DEV INH SCH (09:04)
[2017-08-31] MEDS: ALLOPURINOL 100 MG TABLET PO SCH (09:05)
[2017-08-31] MEDS: FAMOTIDINE 20 MG TABLET PO SCH ×2 (09:05→21:17)
[2017-08-31] MEDS: FENOFIBRATE NANOCRYSTALLIZED 48 MG TABLET PO SCH (09:05)
[2017-08-31] MEDS: SENNOSIDES 1 TABLET PO SCH (17:22)
[2017-08-31 20:35] VITALS: BP 114/70
[2017-08-31] MEDS: ONDANSETRON ODT 4 MG TAB.RAPDIS SL SCH (21:17)
[2017-08-31] MEDS: HYDROXYUREA 500 MG CAPSULE PO SCH (21:18)
[2017-08-31] MEDS: GABAPENTIN 400 MG CAPSULE PO SCH (21:18)
[2017-08-31] MEDS: ANAGRELIDE HCL 0.5 MG CAPSULE PO SCH (21:53)
[2017-08-31] MEDS ORDERED: ANAGRELIDE HCL 0.5 MG CAPSULE ONE (22:06)
[2017-09-01] MEDS: TRAZODONE 50 MG TABLET PO SCH (00:41)
[2017-09-01] MEDS: ACIDOPHILUS/BULGARICUS CHEW TAB PO SCH ×3 (06:29→21:06)
[2017-09-01 08:00] VITALS: BP 116/77
[2017-09-01 08:13] LABS: CARBON DIOXIDE 25 mmol/L (21-32); CHLORIDE 109 mmol/L (98-107); CREATININE 1.6 mg/dL (0.6-1.3); GLUCOSE 69 mg/dL (74-106); MAGNESIUM 1.9 mg/dL (1.8-2.4); MEAN CORPUSCULAR HEMOGLOBIN 28.8 UUG (27.0-31.0); PHOSPHOROUS 4.3 mg/dL (2.5-4.9); POTASSIUM 4.8 mmol/L (3.5-5.1); UREA NITROGEN, BLOOD 23 mg/dL (7-18)
[2017-09-01 08:15] LABS: BASOPHILS # (AUTO) 0.3 K/uL (0.0-8.0); BASOPHILS % (AUTO) 1.3 % (0.0-2.0); EOSINOPHILS # (AUTO) 0.7 K/uL (0.0-0.7); EOSINOPHILS % (AUTO) 2.7 % (0.0-7.0); HEMATOCRIT 39.4 % (40-50); HEMOGLOBIN 12.6 G/DL (14.0-18.0); LYMPHOCYTES # (AUTO) 1.8 K/UL (0.8-4.8); LYMPHOCYTES % (AUTO) 6.7 % (20.5-51.5); MEAN CORPUSCULAR HGB CONC 32 g/dL (32.0-37.0); MEAN CORPUSCULAR VOLUME 90.2 FL (82.0-92.0); MONOCYTES # (AUTO) 0.5 K/UL (0.1-1.30); NEUTROPHILS # (AUTO) 23.6 K/UL (1.8-8.9); NEUTROPHILS % (AUTO) 87.3 % (38.5-71.5); PLATELET COUNT (AUTO) 864 K/UL (150-450); RED BLOOD CELL COUNT(AUTO) 4.37 MIL/UL (4.7-6.1); WHITE BLOOD COUNT (AUTO) 26.9 K/UL (4.0-11.2)
[2017-09-01 08:34] LABS: BAND % (MANUAL) 3 % (0-10); LYMPHOCYTES % (MANUAL) 8 % (20-40); MONOCYTES % (MANUAL) 5 % (2-10); NEUTROPHILS % (MANUAL) 84 % (42-75)
[2017-09-01] MEDS: FLUTICASONE/VILANTEROL 1 EACH BLST.W.DEV INH SCH (09:10)
[2017-09-01] MEDS: FENOFIBRATE NANOCRYSTALLIZED 48 MG TABLET PO SCH (09:10)
[2017-09-01] MEDS: ALLOPURINOL 100 MG TABLET PO SCH (09:10)
[2017-09-01] MEDS: ASPIRIN 81 MG TAB.CHEW PO SCH (09:10)
[2017-09-01] MEDS: FAMOTIDINE 20 MG TABLET PO SCH ×2 (09:10→20:33)
[2017-09-01] MEDS ORDERED: HYDROXYUREA 500 MG CAPSULE PO ONE (12:30)
[2017-09-01] MEDS ORDERED: FUROSEMIDE 20 MG TABLET PO ONE (12:30)
[2017-09-01] MEDS: SENNOSIDES 1 TABLET PO SCH (17:20)
[2017-09-01 20:16] VITALS: BP 111/57
[2017-09-01] MEDS: GABAPENTIN 400 MG CAPSULE PO SCH (20:32)
[2017-09-01] MEDS: ANAGRELIDE HCL 0.5 MG CAPSULE PO SCH (20:33)
[2017-09-01] MEDS: ONDANSETRON ODT 4 MG TAB.RAPDIS SL SCH (20:33)
[2017-09-01] MEDS: HYDROXYUREA 500 MG CAPSULE PO SCH (20:36)
[2017-09-02] MEDS: TRAZODONE 50 MG TABLET PO SCH (00:43)
[2017-09-02] MEDS: ACIDOPHILUS/BULGARICUS CHEW TAB PO SCH ×2 (06:25→14:31)
[2017-09-02 07:30] VITALS: BP 121/76
[2017-09-02 07:32] LABS: ALANINE AMINOTRANSFERASE 16 U/L (16-63); ALKALINE PHOSPHATASE 103 U/L (50-136); ASPARTATE AMINOTRANSFERASE 21 U/L (15-37); BILIRUBIN,TOTAL 0.3 mg/dL (0.2-1.0); CARBON DIOXIDE 27 mmol/L (21-32); CHLORIDE 109 mmol/L (98-107); CREATININE 1.7 mg/dL (0.6-1.3); GLUCOSE 81 mg/dL (74-106); MAGNESIUM 1.8 mg/dL (1.8-2.4); PHOSPHOROUS 4.9 mg/dL (2.5-4.9); POTASSIUM 5.1 mmol/L (3.5-5.1); TOTAL PROTEIN, SERUM 5.5 g/dL (6.4-8.2); UREA NITROGEN, BLOOD 30 mg/dL (7-18)
[2017-09-02 07:34] LABS: BASOPHILS # (AUTO) 0.8 K/uL (0.0-8.0); BASOPHILS % (AUTO) 4.1 % (0.0-2.0); EOSINOPHILS # (AUTO) 0.5 K/uL (0.0-0.7); EOSINOPHILS % (AUTO) 2.8 % (0.0-7.0); HEMATOCRIT 36.4 % (36.7-47.1); HEMOGLOBIN 11.3 g/dL (12.5-16.3); LYMPHOCYTES # (AUTO) 1.6 K/uL (20.0-40.0); LYMPHOCYTES % (AUTO) 8.3 % (20.5-51.5); MEAN CORPUSCULAR HEMOGLOBIN 28.4 uug (23.8-33.4); MEAN CORPUSCULAR HGB CONC 31 g/dL (32.5-36.3); MEAN CORPUSCULAR VOLUME 91.4 fL (73.0-96.2); MONOCYTES # (AUTO) 0.5 K/uL (2.0-10.0); MONOCYTES % (AUTO) 2.8 % (0.0-11.0); NEUTROPHILS # (AUTO) 15.6 K/uL (1.8-8.9); PLATELET COUNT (AUTO) 690 K/uL (152-348); RED BLOOD CELL COUNT(AUTO) 3.99 MIL/uL (4.06-5.63)
[2017-09-02] MEDS: FAMOTIDINE 20 MG TABLET PO SCH (08:58)
[2017-09-02] MEDS: ALLOPURINOL 100 MG TABLET PO SCH (08:58)
[2017-09-02] MEDS: FENOFIBRATE NANOCRYSTALLIZED 48 MG TABLET PO SCH (08:59)
[2017-09-02] MEDS: ASPIRIN 81 MG TAB.CHEW PO SCH (09:00)
[2017-09-02] MEDS: FLUTICASONE/VILANTEROL 1 EACH BLST.W.DEV INH SCH (09:05)
== END 2017-09-02 16:05 | disposition home health service (06) | DRG 871 ==
PROVIDERS: ADMIT Physical Medicine & Rehabilitation Pain Medicine; ATTEND Physical Medicine & Rehabilitation Pain Medicine
DX: A41.9 Sepsis, unspecified organism (principal); J18.9 Pneumonia, unspecified organism; N17.0 Acute kidney failure with tubular necrosis; J84.9 Interstitial pulmonary disease, unspecified; E46 Unspecified protein-calorie malnutrition; I11.0 Hypertensive heart disease with heart failure; I27.20 Pulmonary hypertension, unspecified; G62.9 Polyneuropathy, unspecified; I50.9 Heart failure, unspecified; J98.11 Atelectasis; E83.42 Hypomagnesemia; D45 Polycythemia vera; D63.8 Anemia in other chronic diseases classified elsewhere; E78.5 Hyperlipidemia, unspecified; R26.9 Unspecified abnormalities of gait and mobility; M19.90 Unspecified osteoarthritis, unspecified site; K21.9 Gastro-esophageal reflux disease without esophagitis; I25.10 Atherosclerotic heart disease of native coronary artery without angina pectoris; I10 Essential (primary) hypertension; R53.1 Weakness; G25.81 Restless legs syndrome; M10.9 Gout, unspecified; R29.6 Repeated falls; I35.0 Nonrheumatic aortic (valve) stenosis; Z88.2 Allergy status to sulfonamides; R11.0 Nausea; T37.8X5A Adverse effect of other specified systemic anti-infectives and antiparasitics, initial encounter; Y92.239 Unspecified place in hospital as the place of occurrence of the external cause
CPT/HCPCS: 36415; 70450; 71010; 83735; 84100; 85025; 92526; 92610; 93005; 97110; 97112; 97116; 97530; 97535; J0692; J7050; J7060; Q0144; Q0162

== ENCOUNTER 2017-11-22 15:00 | Inpatient (IN) | payer MEDICARE, BC ==
[~2017-11-22] VITALS: Ht 170.2 cm; Wt 64.9 kg
[~2017-11-22 15:00] MED LIST changes: +FLUT1BLS IH; +HYDR500C2 PO; -HYDROXYUREA PO
[2017-11-22] MEDS ORDERED: IV NORMAL SALINE 1000 ML BAG IV ONE (15:15)
[2017-11-22 15:27] LABS: BASOPHILS # (AUTO) 0.2 K/uL (0.0-8.0); BASOPHILS % (AUTO) 0.7 % (0.0-2.0); EOSINOPHILS # (AUTO) 0.2 K/uL (0.0-0.7); EOSINOPHILS % (AUTO) 0.8 % (0.0-7.0); HEMATOCRIT 36.9 % (36.7-47.1); HEMOGLOBIN 11.3 g/dL (12.5-16.3); LYMPHOCYTES # (AUTO) 1.3 K/uL (20.0-40.0); LYMPHOCYTES % (AUTO) 5.8 % (20.5-51.5); MEAN CORPUSCULAR HEMOGLOBIN 27.7 uug (23.8-33.4); MEAN CORPUSCULAR HGB CONC 31 g/dL (32.5-36.3); MEAN CORPUSCULAR VOLUME 90.4 fL (73.0-96.2); MONOCYTES # (AUTO) 1.1 K/uL (2.0-10.0); MONOCYTES % (AUTO) 4.7 % (0.0-11.0); NEUTROPHILS # (AUTO) 20.1 K/uL (1.8-8.9); PLATELET COUNT (AUTO) 581 K/uL (152-348); RED BLOOD CELL COUNT(AUTO) 4.08 MIL/uL (4.06-5.63); WHITE BLOOD COUNT (AUTO) 22.9 K/uL (3.6-10.2)
[2017-11-22 15:41] LABS: ALANINE AMINOTRANSFERASE 18 U/L (16-63); ALKALINE PHOSPHATASE 101 U/L (50-136); ASPARTATE AMINOTRANSFERASE 27 U/L (15-37); BILIRUBIN,DIRECT 0.1 mg/dL (0.0-0.2); BILIRUBIN,TOTAL 0.4 mg/dL (0.2-1.0); CARBON DIOXIDE 24 mmol/L (21-32); CHLORIDE 102 mmol/L (98-107); CREATININE 1.5 mg/dL (0.6-1.3); GLUCOSE 97 mg/dL (74-106); POTASSIUM 4.2 mmol/L (3.5-5.1); TOTAL PROTEIN, SERUM 6.6 g/dL (6.4-8.2); UREA NITROGEN, BLOOD 35 mg/dL (7-18)
[2017-11-22] MEDS ORDERED: CEFTRIAXONE 1 G VIAL ONE (15:42)
[2017-11-22] MEDS ORDERED: CEFTRIAXONE 1 G in IV DEXTROSE 5% 50 ML IV ONE (15:45)
[2017-11-22] MEDS ORDERED: AZITHROMYCIN IV 500 MG in IV DEXTROSE 5% 250 ML IV ONE (16:15)
[2017-11-22] MEDS ORDERED: ONDANSETRON 4 MG/2 ML VIAL IV PRN (16:30)
[2017-11-22] MEDS ORDERED: Z GUARD REMEDY PASTE 57 GM TUBE TOP PRN (16:30)
[2017-11-22] MEDS ORDERED: ALBUTEROL SULFATE 2.5 MG/3 ML NEBU ONE (16:30)
[2017-11-22] MEDS ORDERED: ACETAMINOPHEN 325 MG TABLET PO PRN (16:30)
[2017-11-22] MEDS ORDERED: IBUPROFEN 600 MG TABLET PO PRN (16:30)
[2017-11-22] MEDS ORDERED: MAGNESIUM HYDROXIDE 30 ML LIQUID UDC PO PRN (16:30)
[2017-11-22] MEDS ORDERED: HYDROCODONE/APAP 5-325MG TABLET PO PRN (16:30)
[2017-11-22] MEDS ORDERED: ALBUTEROL SULFATE 2.5 MG/3 ML NEBU NEB PRN (16:30)
[2017-11-22] MEDS ORDERED: AZITHROMYCIN 500 MG VIAL IV ONE (16:32)
[2017-11-22 16:37] LABS: *BILIRUBIN,URIN NEGATIVE (NEGATIVE); *BLOOD, URINE NEGATIVE (NEGATIVE); *CLARITY,URINE CLEAR (CLEAR); *COLOR,URINE YELLOW (YELLOW); *KETONES,URINE NEGATIVE (NEGATIVE); *PROTEIN,URINE NEGATIVE (NEGATIVE); *UROBILINOGEN,URINE 0.2 E.U./dl (NORMAL); LEUKOCYTE ESTERASE ,URINE NEGATIVE (NEGATIVE); NITRITE, URINE NEGATIVE (NEGATIVE); UGLUCOSE NEGATIVE (NEGATIVE)
[2017-11-22 16:43] LABS: BACTERIA,URINE NONE SEEN /HPF (NONE SEEN); RBC,URINE 0-3 /HPF (0-3); SQUAMOUS EPITHELIAL CELL,UR NONE SEEN /HPF (NONE SEEN)
[2017-11-22] MEDS ORDERED: ZANTAC 150 MG PO SCH (17:00)
[2017-11-22] MEDS ORDERED: IBUPROFEN 400 MG TABLET PO PRN (17:00)
[2017-11-22 18:00] VITALS: BP 90/52
[2017-11-22] MEDS ORDERED: VANCOMYCIN IV 1 G in PREMIXED 0 EACH IV ONE (19:45)
[2017-11-22 20:00] VITALS: BP 104/60
[2017-11-22] MEDS: PIPERACILLIN/TAZOBACTAM/D5W 50 ML IV SCH (20:10)
[2017-11-22] MEDS: IV NS 1000 ML 1,000 ML IV PRN (20:11)
[2017-11-22] MEDS: GABAPENTIN 400 MG CAPSULE PO SCH (20:31)
[2017-11-22] MEDS ORDERED: ENOXAPARIN SODIUM 30 MG/0.3 ML DISP.SYRIN SQ SCH (21:00)
[2017-11-22] MEDS ORDERED: DOCUSATE SODIUM 250 MG CAPSULE PO SCH (21:00)
[2017-11-22] MEDS ORDERED: HYDROXYUREA 500 MG CAPSULE PO SCH (21:00)
[2017-11-23 00:02] VITALS: BP 90/55
[2017-11-23] MEDS: PIPERACILLIN/TAZOBACTAM/D5W 50 ML IV SCH ×5 (01:16→23:47)
[2017-11-23 04:00] VITALS: BP 92/52
[2017-11-23] MEDS ORDERED: PANTOPRAZOLE SODIUM 40 MG TABLET.DR PO SCH (07:00)
[2017-11-23 07:41] LABS: BASOPHILS # (AUTO) 0.7 K/uL (0.0-8.0); BASOPHILS % (AUTO) 2.7 % (0.0-2.0); EOSINOPHILS # (AUTO) 0.2 K/uL (0.0-0.7); EOSINOPHILS % (AUTO) 0.8 % (0.0-7.0); HEMATOCRIT 32.4 % (36.7-47.1); LYMPHOCYTES # (AUTO) 1.5 K/uL (20.0-40.0); LYMPHOCYTES % (AUTO) 6.1 % (20.5-51.5); MEAN CORPUSCULAR HEMOGLOBIN 27.9 uug (23.8-33.4); MEAN CORPUSCULAR HGB CONC 31 g/dL (32.5-36.3); MEAN CORPUSCULAR VOLUME 90.2 fL (73.0-96.2); MONOCYTES # (AUTO) 2.1 K/uL (2.0-10.0); MONOCYTES % (AUTO) 8.6 % (0.0-11.0); NEUTROPHILS # (AUTO) 20.2 K/uL (1.8-8.9); NEUTROPHILS % (AUTO) 81.8 % (38.5-71.5); PLATELET COUNT (AUTO) 472 K/uL (152-348); RED BLOOD CELL COUNT(AUTO) 3.59 MIL/uL (4.06-5.63); WHITE BLOOD COUNT (AUTO) 24.7 K/uL (3.6-10.2)
[2017-11-23 07:59] LABS: CARBON DIOXIDE 23 mmol/L (21-32); CHLORIDE 105 mmol/L (98-107); CREATININE 1.3 mg/dL (0.6-1.3); GLUCOSE 85 mg/dL (74-106); MAGNESIUM 1.9 mg/dL (1.8-2.4); PHOSPHOROUS 3.9 mg/dL (2.5-4.9); POTASSIUM 3.8 mmol/L (3.5-5.1); UREA NITROGEN, BLOOD 28 mg/dL (7-18)
[2017-11-23] MEDS: FAMOTIDINE 20 MG TABLET PO SCH (08:40)
[2017-11-23] MEDS: FLUTICASONE/VILANTEROL 1 EACH BLST.W.DEV IH SCH ×2 (08:40→09:00)
[2017-11-23] MEDS: ALLOPURINOL 100 MG TABLET PO SCH (08:40)
[2017-11-23 08:48] LABS: BAND % (MANUAL) 1 % (0-10); EOSINOPHILS % (MANUAL) 1 % (0-8); LYMPHOCYTES % (MANUAL) 4 % (20-40); MONOCYTES % (MANUAL) 6 % (2-10); NEUTROPHILS % (MANUAL) 87 % (42-75)
[2017-11-23] MEDS ORDERED: ASPIRIN EC 81 MG TABLET.DR PO SCH (09:00)
[2017-11-23] MEDS ORDERED: FENOFIBRIC ACID 45 MG PO SCH (09:00)
[2017-11-23] MEDS: FENOFIBRATE NANOCRYSTALLIZED 48 MG TABLET PO SCH (10:16)
[2017-11-23 11:25] VITALS: BP 94/53
[2017-11-23 15:50] VITALS: BP 100/65
[2017-11-23] MEDS ORDERED: CEFTRIAXONE 1 G in IV DEXTROSE 5% 50 ML IV SCH (16:00)
[2017-11-23] MEDS: IV NS 1000 ML 1,000 ML IV PRN (16:37)
[2017-11-23] MEDS: ONDANSETRON ODT 4 MG TAB.RAPDIS SL SCH (16:38)
[2017-11-23] MEDS: ASPIRIN EC 81 MG TABLET.DR PO SCH (16:38)
[2017-11-23] MEDS: ANAGRELIDE HCL 0.5 MG CAPSULE PO SCH (16:39)
[2017-11-23] MEDS: DOCUSATE SODIUM 100 MG CAPSULE PO SCH (16:40)
[2017-11-23] MEDS: HYDROXYUREA 500 MG CAPSULE PO SCH (16:40)
[2017-11-23] MEDS: SENNOSIDES 1 TABLET PO SCH (16:52)
[2017-11-23] MEDS ORDERED: AZITHROMYCIN IV 500 MG in IV DEXTROSE 5% 250 ML IV SCH (17:00)
[2017-11-23] MEDS: GABAPENTIN 400 MG CAPSULE PO SCH (20:22)
[2017-11-23] MEDS: LACTOBACILLUS RHAMNOSUS GG 1 EACH CAPSULE PO SCH (20:22)
[2017-11-23 20:23] VITALS: BP 91/57
[2017-11-23] MEDS: VANCOMYCIN IV 1 G in PREMIXED 0 EACH IV SCH (20:23)
[2017-11-23] MEDS ORDERED: SENNOSIDES 1 TABLET PO SCH (21:00)
[2017-11-23] MEDS ORDERED: ENOXAPARIN SODIUM 40 MG/0.4 ML DISP.SYRIN SQ SCH (21:00)
[2017-11-24 00:05] VITALS: BP 101/47
[2017-11-24] MEDS: LORAZEPAM 1 MG TABLET PO PRN ×2 (00:43→22:54)
[2017-11-24 04:00] VITALS: BP 97/49
[2017-11-24] MEDS: PIPERACILLIN/TAZOBACTAM/D5W 50 ML IV SCH ×3 (05:45→18:39)
[2017-11-24 08:27] LABS: BASOPHILS # (AUTO) 0.7 K/uL (0.0-8.0); EOSINOPHILS # (AUTO) 0.6 K/uL (0.0-0.7); EOSINOPHILS % (AUTO) 2.5 % (0.0-7.0); HEMATOCRIT 32.9 % (36.7-47.1); HEMOGLOBIN 10.3 g/dL (12.5-16.3); LYMPHOCYTES # (AUTO) 1.7 K/uL (20.0-40.0); LYMPHOCYTES % (AUTO) 7.4 % (20.5-51.5); MEAN CORPUSCULAR HEMOGLOBIN 28.1 uug (23.8-33.4); MEAN CORPUSCULAR HGB CONC 31 g/dL (32.5-36.3); MONOCYTES # (AUTO) 1.5 K/uL (2.0-10.0); MONOCYTES % (AUTO) 6.4 % (0.0-11.0); NEUTROPHILS # (AUTO) 18.8 K/uL (1.8-8.9); NEUTROPHILS % (AUTO) 80.7 % (38.5-71.5); PLATELET COUNT (AUTO) 510 K/uL (152-348); RED BLOOD CELL COUNT(AUTO) 3.66 MIL/uL (4.06-5.63); WHITE BLOOD COUNT (AUTO) 23.3 K/uL (3.6-10.2)
[2017-11-24] MEDS: LACTOBACILLUS RHAMNOSUS GG 1 EACH CAPSULE PO SCH ×2 (08:30→20:20)
[2017-11-24] MEDS: FAMOTIDINE 20 MG TABLET PO SCH (08:30)
[2017-11-24] MEDS: ALLOPURINOL 100 MG TABLET PO SCH (08:30)
[2017-11-24] MEDS: FENOFIBRATE NANOCRYSTALLIZED 48 MG TABLET PO SCH (08:40)
[2017-11-24] MEDS: FLUTICASONE/VILANTEROL 1 EACH BLST.W.DEV IH SCH (08:40)
[2017-11-24 08:41] LABS: ALANINE AMINOTRANSFERASE 26 U/L (16-63); ALKALINE PHOSPHATASE 71 U/L (50-136); ASPARTATE AMINOTRANSFERASE 32 U/L (15-37); BILIRUBIN,TOTAL 0.2 mg/dL (0.2-1.0); CARBON DIOXIDE 22 mmol/L (21-32); CHLORIDE 110 mmol/L (98-107); CHOLESTEROL 103 mg/dL (<200); CREATININE 1.4 mg/dL (0.6-1.3); GLUCOSE 82 mg/dL (74-106); HDL CHOLESTEROL 44 mg/dL (40-60); MAGNESIUM 2.2 mg/dL (1.8-2.4); PHOSPHOROUS 4.1 mg/dL (2.5-4.9); POTASSIUM 3.9 mmol/L (3.5-5.1); TOTAL PROTEIN, SERUM 5.6 g/dL (6.4-8.2); TRIGLYCERIDES 41 MG/DL (30-150); UREA NITROGEN, BLOOD 28 mg/dL (7-18)
[2017-11-24 10:00] LABS: BAND % (MANUAL) 1 % (0-10); EOSINOPHILS % (MANUAL) 2 % (0-8); LYMPHOCYTES % (MANUAL) 9 % (20-40); MONOCYTES % (MANUAL) 3 % (2-10)
[2017-11-24 10:01] LABS: BASOPHILS % (MANUAL) 2 % (0-2); NEUTROPHILS % (MANUAL) 83 % (42-75)
[2017-11-24 10:58] VITALS: BP 104/56
[2017-11-24] MEDS ORDERED: ASPIRIN EC 325 MG TABLET.DR PO ONE (11:52)
[2017-11-24] MEDS: GABAPENTIN 400 MG CAPSULE PO SCH (12:28)
[2017-11-24 14:58] VITALS: BP 106/66
[2017-11-24] MEDS: SENNOSIDES 1 TABLET PO SCH (17:17)
[2017-11-24] MEDS: ANAGRELIDE HCL 0.5 MG CAPSULE PO SCH (17:17)
[2017-11-24] MEDS: DOCUSATE SODIUM 100 MG CAPSULE PO SCH (17:17)
[2017-11-24] MEDS: HYDROXYUREA 500 MG CAPSULE PO SCH (17:17)
[2017-11-24] MEDS: ONDANSETRON ODT 4 MG TAB.RAPDIS SL SCH (17:21)
[2017-11-24 20:00] VITALS: BP 124/58
[2017-11-24] MEDS: VANCOMYCIN IV 1 G in PREMIXED 0 EACH IV SCH (20:24)
[2017-11-25] VITALS: BP 102/57
[2017-11-25] MEDS: PIPERACILLIN/TAZOBACTAM/D5W 50 ML IV SCH ×4 (00:51→18:42)
[2017-11-25 06:44] LABS: BASOPHILS # (AUTO) 0.1 K/uL (0.0-8.0); BASOPHILS % (AUTO) 0.6 % (0.0-2.0); EOSINOPHILS # (AUTO) 0.8 K/uL (0.0-0.7); EOSINOPHILS % (AUTO) 3.7 % (0.0-7.0); HEMATOCRIT 35.2 % (36.7-47.1); HEMOGLOBIN 10.9 g/dL (12.5-16.3); LYMPHOCYTES # (AUTO) 1.5 K/uL (20.0-40.0); MEAN CORPUSCULAR HGB CONC 31 g/dL (32.5-36.3); MEAN CORPUSCULAR VOLUME 90.1 fL (73.0-96.2); MONOCYTES % (AUTO) 4.7 % (0.0-11.0); NEUTROPHILS # (AUTO) 17.7 K/uL (1.8-8.9); PLATELET COUNT (AUTO) 577 K/uL (152-348); WHITE BLOOD COUNT (AUTO) 21.1 K/uL (3.6-10.2)
[2017-11-25 06:54] LABS: CARBON DIOXIDE 23 mmol/L (21-32); CHLORIDE 109 mmol/L (98-107); CREATININE 1.3 mg/dL (0.6-1.3); GLUCOSE 91 mg/dL (74-106); MAGNESIUM 2.1 mg/dL (1.8-2.4); PHOSPHOROUS 3.7 mg/dL (2.5-4.9); POTASSIUM 4.4 mmol/L (3.5-5.1); UREA NITROGEN, BLOOD 23 mg/dL (7-18)
[2017-11-25] MEDS: ALLOPURINOL 100 MG TABLET PO SCH (08:53)
[2017-11-25] MEDS: FAMOTIDINE 20 MG TABLET PO SCH (08:53)
[2017-11-25] MEDS: ASPIRIN EC 81 MG TABLET.DR PO SCH (08:53)
[2017-11-25] MEDS: LACTOBACILLUS RHAMNOSUS GG 1 EACH CAPSULE PO SCH ×2 (08:54→21:34)
[2017-11-25] MEDS: FENOFIBRATE NANOCRYSTALLIZED 48 MG TABLET PO SCH (08:55)
[2017-11-25] MEDS: FLUTICASONE/VILANTEROL 1 EACH BLST.W.DEV IH SCH (08:55)
[2017-11-25 11:40] VITALS: BP 116/65
[2017-11-25] MEDS: GABAPENTIN 400 MG CAPSULE PO SCH (13:09)
[2017-11-25 15:48] VITALS: BP 130/75
[2017-11-25] MEDS: DOCUSATE SODIUM 100 MG CAPSULE PO SCH (17:12)
[2017-11-25] MEDS: SENNOSIDES 1 TABLET PO SCH (17:12)
[2017-11-25] MEDS: ONDANSETRON ODT 4 MG TAB.RAPDIS SL SCH (17:13)
[2017-11-25] MEDS: ANAGRELIDE HCL 0.5 MG CAPSULE PO SCH (17:13)
[2017-11-25] MEDS: HYDROXYUREA 500 MG CAPSULE PO SCH (17:13)
[2017-11-25 20:27] VITALS: BP 108/57
[2017-11-25] MEDS: VANCOMYCIN IV 1 G in PREMIXED 0 EACH IV SCH (21:34)
[2017-11-25] MEDS: LORAZEPAM 1 MG TABLET PO PRN (23:08)
[2017-11-26] MEDS: PIPERACILLIN/TAZOBACTAM/D5W 50 ML IV SCH ×3 (01:23→13:34)
[2017-11-26 04:00] VITALS: BP 126/66
[2017-11-26 06:58] LABS: BASOPHILS # (AUTO) 0.2 K/uL (0.0-8.0); BASOPHILS % (AUTO) 1.2 % (0.0-2.0); EOSINOPHILS # (AUTO) 0.8 K/uL (0.0-0.7); EOSINOPHILS % (AUTO) 3.7 % (0.0-7.0); HEMATOCRIT 35.2 % (36.7-47.1); HEMOGLOBIN 10.7 g/dL (12.5-16.3); LYMPHOCYTES % (AUTO) 9.3 % (20.5-51.5); MEAN CORPUSCULAR HEMOGLOBIN 27.4 uug (23.8-33.4); MEAN CORPUSCULAR HGB CONC 31 g/dL (32.5-36.3); MEAN CORPUSCULAR VOLUME 89.8 fL (73.0-96.2); MONOCYTES % (AUTO) 4.8 % (0.0-11.0); PLATELET COUNT (AUTO) 632 K/uL (152-348); RED BLOOD CELL COUNT(AUTO) 3.92 MIL/uL (4.06-5.63)
[2017-11-26 07:00] LABS: CARBON DIOXIDE 23 mmol/L (21-32); CHLORIDE 108 mmol/L (98-107); CREATININE 1.3 mg/dL (0.6-1.3); GLUCOSE 86 mg/dL (74-106); MAGNESIUM 1.9 mg/dL (1.8-2.4); POTASSIUM 4.4 mmol/L (3.5-5.1); UREA NITROGEN, BLOOD 23 mg/dL (7-18)
[2017-11-26] MEDS: FLUTICASONE/VILANTEROL 1 EACH BLST.W.DEV IH SCH (08:44)
[2017-11-26] MEDS: ALLOPURINOL 100 MG TABLET PO SCH (08:44)
[2017-11-26] MEDS: FAMOTIDINE 20 MG TABLET PO SCH (08:44)
[2017-11-26] MEDS: LACTOBACILLUS RHAMNOSUS GG 1 EACH CAPSULE PO SCH (08:44)
[2017-11-26] MEDS: FENOFIBRATE NANOCRYSTALLIZED 48 MG TABLET PO SCH (08:44)
[2017-11-26 10:33] LABS: BASOPHILS % (MANUAL) 3 % (0-2); EOSINOPHILS % (MANUAL) 6 % (0-8); LYMPHOCYTES % (MANUAL) 8 % (20-40); METAMYELOCYTES % 1 % (0-1); MONOCYTES % (MANUAL) 4 % (2-10); NEUTROPHILS % (MANUAL) 78 % (42-75)
[2017-11-26 11:48] VITALS: BP 117/67
[2017-11-26] MEDS: GABAPENTIN 400 MG CAPSULE PO SCH (13:34)
[2017-11-26] MEDS ORDERED: MULT1TAB73 PO (14:24)
[2017-11-26] MEDS ORDERED: ASPI-618 PO (14:24)
[2017-11-26] MEDS ORDERED: LORA-259 PO (14:24)
[2017-11-26] MEDS ORDERED: DOCU100C36 PO (14:24)
[2017-11-26] MEDS ORDERED: ALBU2.5V7 NEB (14:24)
[2017-11-26] MEDS ORDERED: ANAG0.5C3 PO (14:24)
[2017-11-26] MEDS ORDERED: ACET325T53 PO (14:24)
[2017-11-26] MEDS ORDERED: MAGN400O6 PO (14:24)
[2017-11-26] MEDS ORDERED: HYDR500C PO (14:24)
[2017-11-26] MEDS ORDERED: LACT1CAP57 PO (14:24)
[2017-11-26] MEDS ORDERED: SENN-167 PO (14:24)
[2017-11-26] MEDS ORDERED: GABA-536 PO (14:24)
[2017-11-26] MEDS ORDERED: IBUP-1953 PO (14:24)
[2017-11-26] MEDS ORDERED: FAMO20TA8 PO (14:24)
[2017-11-26] MEDS ORDERED: AMOX-430 PO (14:25)
[2017-11-26] MEDS ORDERED: VANCOMYCIN IV 1 G in PREMIXED 0 EACH IV SCH (16:00)
[2017-12-21] MEDS ORDERED: LEVO500T2 PO (12:03)
[2017-12-21] MEDS ORDERED: AZIT250T PO (12:39)
== END 2017-11-26 16:00 | DRG 871 ==
LOC: ER 15:01 → TELE 16:46 → MED 11-25 18:50
PROVIDERS: ADMIT Internal Medicine; ATTEND Internal Medicine
DX: A41.9 Sepsis, unspecified organism (principal); J15.9 Unspecified bacterial pneumonia; I21.A1 Myocardial infarction type 2; N17.0 Acute kidney failure with tubular necrosis; E43 Unspecified severe protein-calorie malnutrition; R65.21 Severe sepsis with septic shock; D68.59 Other primary thrombophilia; I50.33 Acute on chronic diastolic (congestive) heart failure; G92 Toxic encephalopathy; E87.2 Acidosis; I45.2 Bifascicular block; J98.11 Atelectasis; D45 Polycythemia vera; Z68.22 Body mass index [BMI] 22.0-22.9, adult; Z95.2 Presence of prosthetic heart valve; Z96.643 Presence of artificial hip joint, bilateral; Z96.652 Presence of left artificial knee joint; M10.9 Gout, unspecified; K21.9 Gastro-esophageal reflux disease without esophagitis; Z74.09 Other reduced mobility; F03.90 Unspecified dementia, unspecified severity, without behavioral disturbance, psychotic disturbance, mood disturbance, and anxiety; G62.9 Polyneuropathy, unspecified; G25.81 Restless legs syndrome; I27.20 Pulmonary hypertension, unspecified; I67.2 Cerebral atherosclerosis; I11.0 Hypertensive heart disease with heart failure; I08.3 Combined rheumatic disorders of mitral, aortic and tricuspid valves; G89.29 Other chronic pain; D64.9 Anemia, unspecified; E78.5 Hyperlipidemia, unspecified; Z86.73 Personal history of transient ischemic attack (TIA), and cerebral infarction without residual deficits; Z91.81 History of falling
CPT/HCPCS: 36415; 70030-TC; 70450; 71045; 83605; 83735; 84100; 85025; 85730; 87040; 87086; 87400; 93005; 93307; 97116; 97530; A4663; J0456; J0696; J1650; J2543; J3370; J7030; J7050; J7060; J8499; Q0162

== ENCOUNTER 2017-11-26 16:58 | Inpatient (IN) | payer MEDICARE, BC ==
[~2017-11-26] VITALS: Ht 185.4 cm; Wt 93.0 kg
[~2017-11-26 16:58] MED LIST changes: +ACET325T53 PO; +ALBU2.5V7 NEB; +AMOX-430 PO; +ASPI-618 PO; +DOCU100C36 PO; +FAMO20TA8 PO; +GABA-536 PO; +HYDR500C PO; +IBUP-1953 PO; +LACT1CAP57 PO; +MAGN400O6 PO; +MULT1TAB73 PO; +SENN-167 PO
--- NOTE | 2017-11-26 17:00 | NUR ---
Admitted to ARU per wheelchair for metabolic encephalopathy. Vital signs stable, not in any form of distress. Alert, awake x4. Denies any pain. On room air. Pictures taken and attached to chart. With at bedside, routine admission care done. Oriented to unit and equipment, informed Dr Rose of admission
[2017-11-26] MEDS ORDERED: Z GUARD REMEDY PASTE 57 GM TUBE TOP PRN (17:30)
--- NOTE | 2017-11-26 18:00 | NUR ---
Dr. Kidd informed of admission, medication reconciliation requested.
[2017-11-26 18:44] VITALS: BP 129/85
[2017-11-26] MEDS ORDERED: ALBUTEROL SULFATE 2.5 MG/3 ML NEBU NEB PRN (19:15)
[2017-11-26] MEDS ORDERED: ACETAMINOPHEN 325 MG TABLET PO PRN (19:15)
[2017-11-26] MEDS ORDERED: IBUPROFEN 400 MG TABLET PO PRN (19:15)
[2017-11-26] MEDS ORDERED: MAGNESIUM HYDROXIDE 30 ML LIQUID UDC PO PRN (19:15)
[2017-11-26] MEDS: LACTOBACILLUS RHAMNOSUS GG 1 EACH CAPSULE PO SCH (20:24)
--- NOTE | 2017-11-26 20:30 | NUR ---
Received pt on bed alert, awake and oriented x3. Able to make needs known. and daughter at bedside. No apparent distress noted. No complaints of pain or discomfort. Breathing even and unlabored with normal respirations. All due meds given as ordered and well tolerated, however, pt insisted to take his senna medication because he was not able to take it when he was in medsurg. [employer] made aware, medication administered. Assisted to the bathroom as needed. Side rails up x2. Bed alarm on. Bed locked and in lowest position. Call light within reach. All needs attended.
[2017-11-26] MEDS: HYDROXYUREA 500 MG CAPSULE PO SCH (20:34)
[2017-11-26] MEDS ORDERED: SENNOSIDES 1 TABLET ONE (20:42)
[2017-11-26] MEDS: SENNOSIDES 1 TABLET PO SCH (20:44)
[2017-11-26 22:36] VITALS: BP 142/77
[2017-11-26] MEDS: LORAZEPAM 1 MG TABLET PO PRN (23:16)
--- NOTE | 2017-11-27 05:50 | NUR ---
Patient slept comfortably throughout the shift with no signs of distress noted. No complaints of pain or discomfort. Frequently checked for safety. Kept clean, dry and comfortable. Call light placed within reach. All needs met.
[2017-11-27 07:30] VITALS: BP 135/76
[2017-11-27] MEDS: FLUTICASONE/VILANTEROL 1 EACH BLST.W.DEV IH SCH ×2 (09:00→09:41)
[2017-11-27] MEDS ORDERED: Medication Not On Formulary EA (Multivitamins (Multivitamin) 1 EACH) PO SCH (09:00)
[2017-11-27] MEDS: LACTOBACILLUS RHAMNOSUS GG 1 EACH CAPSULE PO SCH ×2 (09:41→20:31)
[2017-11-27] MEDS: AMOXICILLIN-CLAVUL 875-125MG TABLET PO SCH ×2 (09:41→20:31)
[2017-11-27] MEDS: MULTIVITAMINS,THERAPEUTIC TABLET PO SCH (09:41)
[2017-11-27] MEDS: ASPIRIN EC 81 MG TABLET.DR PO SCH (09:41)
[2017-11-27] MEDS: ALLOPURINOL 100 MG TABLET PO SCH (09:41)
[2017-11-27] MEDS: FAMOTIDINE 20 MG TABLET PO SCH (09:41)
[2017-11-27] MEDS: ONDANSETRON HCL 4 MG TABLET PO PRN ×2 (11:58→17:46)
[2017-11-27] MEDS: GABAPENTIN 400 MG CAPSULE PO SCH (11:59)
[2017-11-27] MEDS ORDERED: ANAGRELIDE HCL 0.5 MG CAPSULE PO SCH (17:00)
[2017-11-27] MEDS ORDERED: DOCUSATE SODIUM 100 MG CAPSULE PO SCH (17:00)
[2017-11-27] MEDS: SENNOSIDES 1 TABLET PO SCH (17:47)
[2017-11-27] MEDS: HYDROXYUREA 500 MG CAPSULE PO SCH (17:50)
[2017-11-27 19:56] VITALS: BP 121/71
--- NOTE | 2017-11-27 20:01 | NUR ---
Received pt lying on bed comfortably awake, alert and oriented x3. Able to make needs known. Pleasant, calm and cooperative to care. at bedside during this time. No acute distress noted. No complaints of pain or discomfort. No SOB noted. Vital signs stable. Kept clean, dry and comfortable. Safety and fall precautions observed. Call light placed within reach. All needs met.
[2017-11-27] MEDS: LORAZEPAM 1 MG TABLET PO PRN (23:40)
--- NOTE | 2017-11-28 05:39 | NUR ---
Patient slept well throughout the shift. No acute distress noted. Denies pain. Pt requested for ativan, medication given as ordered and well tolerated. Ambulates to the bathroom with cane and standby assist. Kept clean, dry and comfortable. Call light within reach. All needs attended to promptly.
[2017-11-28 07:30] VITALS: BP 102/60
[2017-11-28] MEDS: FLUTICASONE/VILANTEROL 1 EACH BLST.W.DEV IH SCH (08:59)
--- NOTE | 2017-11-28 09:00 | NUR ---
MEDICATION STATES HE DOES NOT TAKE THE BREO INHALER ANYMORE SINCE THE LAST TWO WEEKS. THE ALSO CONFIRMED HE IS NOT ON THIS MED ANYMORE
[2017-11-28] MEDS: ASPIRIN EC 81 MG TABLET.DR PO SCH (09:18)
[2017-11-28] MEDS: AMOXICILLIN-CLAVUL 875-125MG TABLET PO SCH ×2 (09:18→20:40)
[2017-11-28] MEDS: LACTOBACILLUS RHAMNOSUS GG 1 EACH CAPSULE PO SCH ×2 (09:18→20:40)
[2017-11-28] MEDS: FAMOTIDINE 20 MG TABLET PO SCH (09:19)
[2017-11-28] MEDS: ALLOPURINOL 100 MG TABLET PO SCH (09:19)
[2017-11-28] MEDS: MULTIVITAMINS,THERAPEUTIC TABLET PO SCH (09:19)
[2017-11-28] MEDS: GABAPENTIN 400 MG CAPSULE PO SCH (13:38)
[2017-11-28] MEDS: SENNOSIDES 1 TABLET PO SCH (17:48)
[2017-11-28] MEDS: HYDROXYUREA 500 MG CAPSULE PO SCH (17:49)
[2017-11-28] MEDS: ANAGRELIDE HCL 0.5 MG CAPSULE PO SCH (17:50)
[2017-11-28 19:30] VITALS: BP 125/74
--- NOTE | 2017-11-28 19:35 | NUR ---
Received pt in bed, AAO watching television. Verbally responsive and able to make needs known. Denies pain or discomfort at this time. No acute distress noted. All safety measures and fall precautions maintained. Call light and all personal belongings within reach. Will continue to monitor.
[2017-11-28] MEDS: LORAZEPAM 1 MG TABLET PO PRN (23:59)
[2017-11-29] MEDS: MAG HYDROX/AL HYDROX/SIMETH 30 ML LIQUID UDC PO PRN ×2 (00:56→21:22)
--- NOTE | 2017-11-29 00:58 | NUR ---
Patient c/o indigestion. notified w/ new order for Maalox susp 30 mg Q 6 hours PRN. Orders noted and carried out. Maalox given, well tolerated. Safety maintained. Call light within reach. Will continue to monitor.
--- NOTE | 2017-11-29 05:52 | NUR ---
No further complaints of pain or discomfort or indigestion. Slept comfortably throughout the shift. Assisted to the restroom as needed. All due medications given per MD order and well tolerated. Kept clean and dry. Safety maintained. Call light within reach. Will continue to monitor. Will endorse to day shift. Addendum: 11/29/17 at 0555 by Ray Hassan RN All needs well anticipated and met accordingly. No acute distress noted.
[2017-11-29 08:01] LABS: BASOPHILS # (AUTO) 0.8 K/uL (0.0-8.0); BASOPHILS % (AUTO) 3.5 % (0.0-2.0); EOSINOPHILS # (AUTO) 0.7 K/uL (0.0-0.7); HEMATOCRIT 34.4 % (36.7-47.1); HEMOGLOBIN 10.7 g/dL (12.5-16.3); LYMPHOCYTES # (AUTO) 1.8 K/uL (20.0-40.0); LYMPHOCYTES % (AUTO) 7.8 % (20.5-51.5); MEAN CORPUSCULAR HEMOGLOBIN 28.2 uug (23.8-33.4); MEAN CORPUSCULAR HGB CONC 31 g/dL (32.5-36.3); MEAN CORPUSCULAR VOLUME 90.6 fL (73.0-96.2); MONOCYTES # (AUTO) 1.3 K/uL (2.0-10.0); MONOCYTES % (AUTO) 5.7 % (0.0-11.0); NEUTROPHILS # (AUTO) 18.5 K/uL (1.8-8.9); PLATELET COUNT (AUTO) 627 K/uL (152-348); WHITE BLOOD COUNT (AUTO) 23.1 K/uL (3.6-10.2)
[2017-11-29 08:04] LABS: ALANINE AMINOTRANSFERASE 21 U/L (16-63); ALKALINE PHOSPHATASE 86 U/L (50-136); ASPARTATE AMINOTRANSFERASE 21 U/L (15-37); BILIRUBIN,TOTAL 0.2 mg/dL (0.2-1.0); CARBON DIOXIDE 25 mmol/L (21-32); CHLORIDE 105 mmol/L (98-107); CREATININE 1.4 mg/dL (0.6-1.3); GLUCOSE 88 mg/dL (74-106); PHOSPHOROUS 4.5 mg/dL (2.5-4.9); POTASSIUM 4.1 mmol/L (3.5-5.1); TOTAL PROTEIN, SERUM 6.3 g/dL (6.4-8.2); UREA NITROGEN, BLOOD 29 mg/dL (7-18)
[2017-11-29] MEDS: LACTOBACILLUS RHAMNOSUS GG 1 EACH CAPSULE PO SCH ×2 (08:52→20:44)
[2017-11-29] MEDS: ALLOPURINOL 100 MG TABLET PO SCH (08:52)
[2017-11-29] MEDS: MULTIVITAMINS,THERAPEUTIC TABLET PO SCH (08:52)
[2017-11-29] MEDS: FAMOTIDINE 20 MG TABLET PO SCH (08:52)
[2017-11-29] MEDS: FLUTICASONE/VILANTEROL 1 EACH BLST.W.DEV IH SCH (08:57)
[2017-11-29 09:01] VITALS: BP 117/68
--- NOTE | 2017-11-29 11:23 | NUR ---
SBAR report received, board updated. Pt awake, alert, oriented x3-4. Pt assessed, denies pain or discomfort at this time. No acute distress or SOB noted. Pt compliant with all scheduled morning medications taking pills all together and whole. Bed in locked and lowest position, with side rails up x2. All safety and comfort needs met. Personal items and call light within reach. Will continue to monitor.
[2017-11-29] MEDS: GABAPENTIN 400 MG CAPSULE PO SCH (13:15)
[2017-11-29] MEDS: ANAGRELIDE HCL 0.5 MG CAPSULE PO SCH (16:50)
[2017-11-29] MEDS: SENNOSIDES 1 TABLET PO SCH (16:50)
[2017-11-29] MEDS: HYDROXYUREA 500 MG CAPSULE PO SCH (16:54)
[2017-11-29] MEDS ORDERED: ANAGRELIDE HCL 0.5 MG CAPSULE PO SCH (17:00)
[2017-11-29 19:49] VITALS: BP 118/55
[2017-11-29] MEDS: LORAZEPAM 1 MG TABLET PO PRN (21:22)
--- NOTE | 2017-11-29 22:15 | NUR ---
resting in bed when received. aaox4 ambulates to the BR with supervision. voiding well. will monitor patient. fall precautions maintained. denies any pain nor any discomfort. tolerated po meds well. needs attended.
--- NOTE | 2017-11-30 05:33 | NUR ---
slept most of the shift. no acute distress noted. ambulates to the BR with cane under supervision. voiding without any difficulty. possible discharge today.
[2017-11-30 08:03] VITALS: BP 105/66
[2017-11-30] MEDS: ALLOPURINOL 100 MG TABLET PO SCH (08:10)
[2017-11-30] MEDS: FAMOTIDINE 20 MG TABLET PO SCH (08:10)
[2017-11-30] MEDS: ASPIRIN EC 81 MG TABLET.DR PO SCH (08:10)
[2017-11-30] MEDS: LACTOBACILLUS RHAMNOSUS GG 1 EACH CAPSULE PO SCH (08:10)
[2017-11-30] MEDS: MULTIVITAMINS,THERAPEUTIC TABLET PO SCH (08:10)
[2017-11-30] MEDS: FLUTICASONE/VILANTEROL 1 EACH BLST.W.DEV IH SCH (08:11)
--- NOTE | 2017-11-30 09:55 | NUR ---
pt seen on rounding. pt continues to show no signs of acute distress. pt able to tolerate room air. bp on the low side. no new injuries noted. pt afebrile. pt ate breakfast and took medicatins. pt will participate in therapy today. will continue to monitor. Addendum: 11/30/17 at 1005 by WILLIS MITCHELL RN note done by Willis Mitchell RN
[2017-11-30] MEDS: GABAPENTIN 400 MG CAPSULE PO SCH (12:03)
--- NOTE | 2017-11-30 13:21 | NUR ---
pt went against medical advice on 1321. pt signed ama form and belongings form. md morgan and md pritchett aware of ama. pt vitals 98.2 temp. 96% room air bp 132/74 hr 78. no signs of sob nor distress. pt left with all belongings and with to home. pt states taht they have their own medications at home and will follow up with their md. no prescriptions given upon discharge.
[2017-12-21] MEDS ORDERED: LEVO500T2 PO (12:03)
[2017-12-21] MEDS ORDERED: AZIT250T PO (12:39)
== END 2017-11-30 13:15 | disposition left against medical advice (07) | DRG 91 ==
PROVIDERS: ADMIT Physical Medicine & Rehabilitation Pain Medicine; ATTEND Physical Medicine & Rehabilitation Pain Medicine
DX: G92 Toxic encephalopathy (principal); J18.9 Pneumonia, unspecified organism; I11.0 Hypertensive heart disease with heart failure; G62.9 Polyneuropathy, unspecified; D68.59 Other primary thrombophilia; I27.20 Pulmonary hypertension, unspecified; I50.32 Chronic diastolic (congestive) heart failure; I08.1 Rheumatic disorders of both mitral and tricuspid valves; R26.9 Unspecified abnormalities of gait and mobility; D45 Polycythemia vera; E78.5 Hyperlipidemia, unspecified; G25.81 Restless legs syndrome; F03.90 Unspecified dementia, unspecified severity, without behavioral disturbance, psychotic disturbance, mood disturbance, and anxiety; I44.4 Left anterior fascicular block; I25.2 Old myocardial infarction; I67.2 Cerebral atherosclerosis; I70.0 Atherosclerosis of aorta; K21.9 Gastro-esophageal reflux disease without esophagitis; M10.9 Gout, unspecified; M19.90 Unspecified osteoarthritis, unspecified site; G89.29 Other chronic pain; Z95.2 Presence of prosthetic heart valve; Z96.642 Presence of left artificial hip joint; Z96.652 Presence of left artificial knee joint; Z88.2 Allergy status to sulfonamides
CPT/HCPCS: 36415; 70030-TC; 71045; 83735; 84100; 85025; 92526; 92610; 97110; 97112; 97116; 97165; 97530; 97535; A4663; J8499; Q0162

== ENCOUNTER 2017-12-18 19:39 | Inpatient (IN) | payer MEDICARE, BC ==
[~2017-12-18] VITALS: Ht 175.3 cm; Wt 66.2 kg
[~2017-12-18 19:39] MED LIST changes: -AZIT250T13 PO; -CEFE1VIA10 IV; -DEXL60CA3 PO; -FENO45CA PO; -GABA600T2 PO; -HYDR500C2 PO; -IBUP-1955 PO; -ONDA4TAB8 PO; -ZANTAC PO
[2017-12-18] MEDS ORDERED: IV NORMAL SALINE 1000 ML BAG IV ONE (20:00)
[2017-12-18] MEDS ORDERED: ACETAMINOPHEN ES 500 MG TABLET PO ONE (20:00)
--- NOTE | 2017-12-18 20:00 | NUR ---
Patient brought in by rescue from home for syncopal episode while usingrestroom. Patient upon arrival A/Ox3. Denies pain,SOB. Patient states was sitting down toilet and fell and hit head on floor. Patient denies syncopal episode
--- NOTE | 2017-12-18 20:03 | NUR ---
Code sepsis called
[2017-12-18 20:26] LABS: HEMATOCRIT 37.6 % (36.7-47.1); HEMOGLOBIN 11.4 g/dL (12.5-16.3); MEAN CORPUSCULAR HGB CONC 31 g/dL (32.5-36.3); MEAN CORPUSCULAR VOLUME 88.7 fL (73.0-96.2); PLATELET COUNT (AUTO) 626 K/uL (152-348); RED BLOOD CELL COUNT(AUTO) 4.24 MIL/uL (4.06-5.63)
[2017-12-18] MEDS ORDERED: ACETAMINOPHEN ES 500 MG TABLET ONE (20:31)
[2017-12-18 20:43] LABS: *BILIRUBIN,URIN NEGATIVE (NEGATIVE); *BLOOD, URINE Trace-intact (NEGATIVE); *CLARITY,URINE CLEAR (CLEAR); *COLOR,URINE YELLOW (YELLOW); *KETONES,URINE NEGATIVE (NEGATIVE); *PROTEIN,URINE NEGATIVE (NEGATIVE); *UROBILINOGEN,URINE 0.2 E.U./dl (NORMAL); LEUKOCYTE ESTERASE ,URINE NEGATIVE (NEGATIVE); NITRITE, URINE NEGATIVE (NEGATIVE); PH,URINE 5.5 (5.0-8.0); UGLUCOSE NEGATIVE (NEGATIVE)
[2017-12-18 20:52] LABS: BACTERIA,URINE NONE SEEN /HPF (NONE SEEN); SQUAMOUS EPITHELIAL CELL,UR FEW /HPF (NONE SEEN); WBC,URINE 0-3 /HPF (0-3)
[2017-12-18 20:59] LABS: CARBON DIOXIDE 23 mmol/L (21-32); CHLORIDE 103 mmol/L (98-107); CREATININE 1.5 mg/dL (0.6-1.3); GLUCOSE 88 mg/dL (74-106); POTASSIUM 4.2 mmol/L (3.5-5.1); UREA NITROGEN, BLOOD 39 mg/dL (7-18)
[2017-12-18 21:02] LABS: WHITE BLOOD COUNT (AUTO) 30.3 K/uL (3.6-10.2)
[2017-12-18 21:11] LABS: ALANINE AMINOTRANSFERASE 19 U/L (16-63); ALKALINE PHOSPHATASE 106 U/L (50-136); ASPARTATE AMINOTRANSFERASE 19 U/L (15-37); BILIRUBIN,DIRECT 0.1 mg/dL (0.0-0.2); BILIRUBIN,TOTAL 0.5 mg/dL (0.2-1.0); TOTAL PROTEIN, SERUM 6.8 g/dL (6.4-8.2)
[2017-12-18 21:22] LABS: NEUTROPHILS % (MANUAL) 94 % (42-75)
[2017-12-18 21:23] LABS: BASOPHILS % (MANUAL) 0 % (0-2); EOSINOPHILS % (MANUAL) 0 % (0-8); LYMPHOCYTES % (MANUAL) 3 % (20-40); MONOCYTES % (MANUAL) 3 % (2-10)
--- NOTE | 2017-12-18 22:00 | NUR ---
Waiting for ct report to admit patient. Called radiology if report can be read and report to be faxed. Waitng for Faxed result
--- NOTE | 2017-12-18 22:33 | NUR ---
Patient eatting dinner with no distress noted
--- NOTE | 2017-12-18 22:38 | NUR ---
Recieved result of CT [facility] Waiting for Dr Lamar to call back
--- NOTE | 2017-12-18 22:41 | NUR ---
SPOKE WITH STATES NO CHANGES IN MEDICATION.PT ON THE SAME THING HE WAS BEFORE
[2017-12-18] MEDS ORDERED: LORAZEPAM 0.5 MG TABLET PO ONE (23:00)
[2017-12-18] MEDS ORDERED: LORAZEPAM 0.5 MG TABLET ONE (23:07)
--- NOTE | 2017-12-18 23:25 | NUR ---
transfered to 2nd floor via gurny. No distress noted
[2017-12-18] MEDS ORDERED: ALBUTEROL SULFATE 2.5 MG/3 ML NEBU NEB PRN (23:30)
[2017-12-18] MEDS ORDERED: MORPHINE SULFATE 4 MG/1 ML DISP.SYRIN IV PRN (23:30)
[2017-12-18] MEDS ORDERED: ACETAMINOPHEN 325 MG TABLET PO PRN (23:30)
[2017-12-18] MEDS ORDERED: ONDANSETRON 4 MG/2 ML VIAL IV PRN (23:30)
--- NOTE | 2017-12-18 23:55 | NUR ---
Admitted this patient to Tele floor via [place] D[facility]. Syncope, awake alert & oriented no SOB denies chest pain. Placed on bed comfortably, monitoring coordinator applied. Vital signs WNL, Tele shows normal sinus rhythm w/ bundle branch block. Initial assessment done. Abrasion on right forehead noted, see picture in chart. Will continue to monitor.
[2017-12-19] VITALS (7 sets, daily range): BP systolic 90–143; BP diastolic 36–62
[2017-12-19] MEDS ORDERED: VANCOMYCIN IV 1,000 MG in IV DEXTROSE 5% 250 ML IV ONE ×2
[2017-12-19] MEDS ORDERED: VANCOMYCIN 1000 MG VIAL ONE (00:15)
[2017-12-19] MEDS ORDERED: PIPERACILLIN/TAZO 2.25 GM VIAL ONE (00:15)
[2017-12-19] MEDS: PIPERACILLIN/TAZOBACTAM/D5W 2.25 G in PREMIXED 1 EACH IV SCH ×4 (00:21→21:56)
[2017-12-19] MEDS: IV NS 1000 ML 1,000 ML IV PRN ×2 (00:21→19:50)
--- NOTE | 2017-12-19 01:19 | NUR ---
Night snacks provided, patient tolerated 4 packs Grahams crackers & 2 apple juice.
--- NOTE | 2017-12-19 04:15 | NUR ---
Patient asleep but arousable, no signs of distress noted, BP is low 90/36. Placed on Trendelenburg position & monitored for changes. Sinus rhythm on the monitor w/ BBB.
[2017-12-19 06:34] LABS: BASOPHILS # (AUTO) 0.4 K/uL (0.0-8.0); BASOPHILS % (AUTO) 1.8 % (0.0-2.0); EOSINOPHILS # (AUTO) 0.3 K/uL (0.0-0.7); EOSINOPHILS % (AUTO) 1.1 % (0.0-7.0); HEMATOCRIT 33.9 % (36.7-47.1); HEMOGLOBIN 10.6 g/dL (12.5-16.3); LYMPHOCYTES # (AUTO) 1.5 K/uL (20.0-40.0); MEAN CORPUSCULAR HEMOGLOBIN 27.6 uug (23.8-33.4); MEAN CORPUSCULAR HGB CONC 31 g/dL (32.5-36.3); MONOCYTES # (AUTO) 1.4 K/uL (2.0-10.0); MONOCYTES % (AUTO) 5.8 % (0.0-11.0); NEUTROPHILS # (AUTO) 21.2 K/uL (1.8-8.9); NEUTROPHILS % (AUTO) 85.3 % (38.5-71.5); PLATELET COUNT (AUTO) 532 K/uL (152-348); RED BLOOD CELL COUNT(AUTO) 3.85 MIL/uL (4.06-5.63); WHITE BLOOD COUNT (AUTO) 24.8 K/uL (3.6-10.2)
[2017-12-19 06:49] LABS: ALANINE AMINOTRANSFERASE 15 U/L (16-63); ALKALINE PHOSPHATASE 88 U/L (50-136); ASPARTATE AMINOTRANSFERASE 19 U/L (15-37); BILIRUBIN,TOTAL 0.4 mg/dL (0.2-1.0); CARBON DIOXIDE 23 mmol/L (21-32); CHLORIDE 107 mmol/L (98-107); CREATININE 1.4 mg/dL (0.6-1.3); GLUCOSE 87 mg/dL (74-106); PHOSPHOROUS 4.2 mg/dL (2.5-4.9); POTASSIUM 3.8 mmol/L (3.5-5.1); TOTAL PROTEIN, SERUM 5.9 g/dL (6.4-8.2); UREA NITROGEN, BLOOD 34 mg/dL (7-18)
--- NOTE | 2017-12-19 07:00 | NUR ---
Patient awake at this time awaiting for his breakfast tray, no pain complaint. Current BP 96/47. Sinus rhythm w/ BBB on the monitor.
[2017-12-19] MEDS: PANTOPRAZOLE SODIUM 40 MG TABLET.DR PO SCH (07:18)
--- NOTE | 2017-12-19 07:39 | NUR ---
RECEIVED PATIENT IN BED AWAKE ALERT AND AWARE DENIES PAIN OR DISCOMFORTS AT THIS TIME.REMAIN ON IVF AND IV ANTIBIOTICS ORDERED WITH NO ADVERSE OR ALLERGIC REACTIONS AT THIS TIME.CALL LIGHTS AND PERSONAL BELONGINGS ARE WITHIN EASY REACH AT THIS TIME.WILL CONTINUE TO OBSERVE.
[2017-12-19] MEDS ORDERED: VANCOMYCIN IV 1 G in PREMIXED 0 EACH IV ONE (10:00)
[2017-12-19] MEDS: ASPIRIN EC 81 MG TABLET.DR PO SCH (12:45)
--- NOTE | 2017-12-19 14:26 | NUR ---
Clinical Pharmacy Note: Vancomycin Pharmacy to Dose Subjective: To start vancomycin in this 82 y/o gentleman for indication of "suspected infection." (elevated temp, wbc) Objective: weight 66kg height 175cm BUN 34 Scr 1.4 Wbc 24.8 temp 99.6 1gm 4/ @0000 in ER Random today am labs 14.3 Assessment/Plan Since renal function may be unstavle, will dose per level for now. Based on today's level, gave one gram vanco x 1 in am. Next random ordered with am labs tomorrow. Will check level and re-dose as needed. Will follow
--- NOTE | 2017-12-19 15:00 | NUR ---
REMAIN ON IV ANTIBIOTICS ORDERED WITH NO ADVERSE OR ALLERGIC REACTIONS AT THIS TIME.IV SITE WAS CHANGED DUE TO THE FACT THAT HIS SITE ON THE LEFT ANTICUBITAL WAS LEAKING INSERTED TO HIS RIGHT HAND GAUGE 20 AND SECURED WITH TAPE.MADE COMFORTABLE AND WILL CONTINUE TO OBSERVE PATIENT.
[2017-12-19] MEDS ORDERED: GABAPENTIN 300 MG CAPSULE PO SCH (17:00)
[2017-12-19] MEDS: SENNOSIDES 1 TABLET PO SCH (17:34)
--- NOTE | 2017-12-19 18:30 | NUR ---
PATIENT IS REQUESTING FOR GABAPENTIN STATED THAT ITS HIS HOME MEDICATIONS CALLED DR WOOD AND HE GAVE ME AN ORDERED ORDERED AND ADMINISTERED.
[2017-12-19] MEDS: GABAPENTIN 400 MG CAPSULE PO SCH (18:36)
[2017-12-19] MEDS: DOCUSATE SODIUM 250 MG CAPSULE PO SCH (21:00)
[2017-12-19] MEDS: LACTOBACILLUS RHAMNOSUS GG 1 EACH CAPSULE PO SCH (21:54)
[2017-12-20] VITALS: BP 114/63
[2017-12-20] MEDS: LORAZEPAM 1 MG TABLET PO PRN ×2 (00:24→23:59)
[2017-12-20 04:00] VITALS: BP 120/65
[2017-12-20] MEDS: PANTOPRAZOLE SODIUM 40 MG TABLET.DR PO SCH (06:07)
[2017-12-20] MEDS: PIPERACILLIN/TAZOBACTAM/D5W 2.25 G in PREMIXED 1 EACH IV SCH ×3 (06:07→21:39)
--- NOTE | 2017-12-20 06:18 | NUR ---
Pt slept well last night after PRN Ativan was requested and administered. Encouraged PO fluid intake. Assisted to bathroom as needed. All needs attended to. Call light within reach.
[2017-12-20 07:42] LABS: BASOPHILS # (AUTO) 0.4 K/uL (0.0-8.0); BASOPHILS % (AUTO) 1.6 % (0.0-2.0); EOSINOPHILS # (AUTO) 0.6 K/uL (0.0-0.7); EOSINOPHILS % (AUTO) 2.4 % (0.0-7.0); HEMATOCRIT 34.2 % (36.7-47.1); HEMOGLOBIN 10.6 g/dL (12.5-16.3); LYMPHOCYTES # (AUTO) 1.7 K/uL (20.0-40.0); LYMPHOCYTES % (AUTO) 6.9 % (20.5-51.5); MEAN CORPUSCULAR HEMOGLOBIN 27.5 uug (23.8-33.4); MEAN CORPUSCULAR HGB CONC 31 g/dL (32.5-36.3); MEAN CORPUSCULAR VOLUME 88.6 fL (73.0-96.2); MONOCYTES # (AUTO) 1.4 K/uL (2.0-10.0); NEUTROPHILS % (AUTO) 83.1 % (38.5-71.5); PLATELET COUNT (AUTO) 592 K/uL (152-348); RED BLOOD CELL COUNT(AUTO) 3.86 MIL/uL (4.06-5.63); WHITE BLOOD COUNT (AUTO) 24.1 K/uL (3.6-10.2)
[2017-12-20 07:43] LABS: ALANINE AMINOTRANSFERASE 19 U/L (16-63); ALKALINE PHOSPHATASE 83 U/L (50-136); ASPARTATE AMINOTRANSFERASE 19 U/L (15-37); BILIRUBIN,TOTAL 0.2 mg/dL (0.2-1.0); CARBON DIOXIDE 22 mmol/L (21-32); CHLORIDE 111 mmol/L (98-107); CREATININE 1.2 mg/dL (0.6-1.3); GLUCOSE 93 mg/dL (74-106); MAGNESIUM 2.1 mg/dL (1.8-2.4); PHOSPHOROUS 3.7 mg/dL (2.5-4.9); POTASSIUM 4.2 mmol/L (3.5-5.1); TOTAL PROTEIN, SERUM 5.9 g/dL (6.4-8.2); UREA NITROGEN, BLOOD 24 mg/dL (7-18); VANCOMYCIN,RANDOM 10.6 ug/mL (18.0-26.0)
--- NOTE | 2017-12-20 07:44 | NUR ---
RECEIVED PATIENT IN BED WITH HIS EYES CLOSED BUT IS EASILY AROUSABLE ON ROUNDS DENIES DISCOMFORTS AT THIS TIME.HE IS ON ROOM AIR WITH NO SHORTNESS OF BREATH AT THIS TIME.CALL LIGHTS AND ALL PERSONAL BELONGINGS ARE WITHIN EASY REACH AT THIS TIME.WILL CONTINUE TO OBSERVE.
[2017-12-20] MEDS: MULTIVITAMINS,THERAPEUTIC TABLET PO SCH (08:10)
[2017-12-20] MEDS: LACTOBACILLUS RHAMNOSUS GG 1 EACH CAPSULE PO SCH ×2 (08:10→20:30)
[2017-12-20] MEDS: ASPIRIN EC 81 MG TABLET.DR PO SCH (08:10)
[2017-12-20] MEDS: ALLOPURINOL 100 MG TABLET PO SCH (08:10)
[2017-12-20] MEDS: SENNOSIDES 1 TABLET PO SCH (08:16)
[2017-12-20] MEDS: GABAPENTIN 400 MG CAPSULE PO SCH ×2 (08:16→13:24)
--- NOTE | 2017-12-20 08:17 | NUR ---
PATIENT REFUSED SENKOT STATED TAKES AT 1700 AND ALSO REFUSED NEURONTIN STATED TAKES AT 1300 WILL GIVEM THEM TO HIM AT THESE TIMES UNSCHEDULED
[2017-12-20] MEDS: VANCOMYCIN IV 1 G in PREMIXED 0 EACH IV SCH (08:59)
[2017-12-20] MEDS ORDERED: Medication Not On Formulary EA (Multivitamins (Multivitamin) 1 EACH) PO SCH (09:00)
[2017-12-20 11:26] VITALS: BP 114/67
--- NOTE | 2017-12-20 11:32 | NUR ---
Clinical Pharmacy Note: Vancomycin Pharmacy to Dose Subjective: To continue vancomycin in this 82 y/o gentleman for indication of "suspected infection." (elevated temp, wbc) Objective: weight 66kg height 175cm BUN 24 Scr 1.2 Wbc 24.1 temp 98.3 Random today am labs 10.6 Assessment/Plan As per previous admission & vanco random level of 10.6 with am lab today (post vanco 1gm IVPB x1 on 12/19 at 0030 & 0900), will start vanco 1gm IVPB q19h for predicted vanco trough elev of 15 mcg/ml at steady state. 1st dose is due today at 0900. Plan to draw vanco trough level before 4th dose (not yet ordered). Will monitor srcr & adjust the dose if needed. Will follow Addendum: 12/20/17 at 1136 by JOSE LUIS LEMA WAITING FOR MD NOTE
--- NOTE | 2017-12-20 15:00 | NUR ---
REMAIN ON ANTIBIOTICS ORDERED WITH NO ADVERSE OR ALLERGIC REACTIONS AT THIS TIME.AMBULATORY WITH HAND HELD/SBA WITH FAIR ENDURANCE
[2017-12-20 15:28] VITALS: BP 112/62
[2017-12-20] MEDS ORDERED: HYDROXYUREA 500 MG CAPSULE PO SCH (17:00)
[2017-12-20] MEDS ORDERED: DOCUSATE SODIUM 100 MG CAPSULE PO SCH (17:00)
[2017-12-20] MEDS ORDERED: ANAGRELIDE HCL 0.5 MG CAPSULE PO SCH (17:00)
--- NOTE | 2017-12-20 17:00 | NUR ---
PATIENT REQUESTED FOR HIS IVF TO BE TURNED OFF SO MANY TIMES SO HE COULD EITHER WALK AROUND OR USE THE BATHROOM SO THE AMOUNT OF IVF CONSUMED IS LESS THAN SHOULD STATED THAT HE WAS EATING AND DRINKING ENOUGH RECONNECTED SOON POSSIBLE WILL CONTINUE TO OBSERVE
--- NOTE | 2017-12-20 18:01 | NUR ---
SITTING UP ON THE CHAIR EATING DINNER DUE MEDICATIONS GIVEN AT THE BEDSIDE MADE COMFORTABLE.
--- NOTE | 2017-12-20 19:30 | NUR ---
RECEIVED PATIENT IN BED, ALERT, NO SOB NO CHEST PAIN, RYTHM SINUS RYTHM WITH BUNDLE BRANCH BLOCK, NO COMPLAIN OF PAIN, NO COUGHING NO CONGESTION NOTED, USED URINAL FOR BLADDER ELIMINATION. CALL LIGHT WITHIN REACH.
[2017-12-20 20:00] VITALS: BP 102/52
[2017-12-20] MEDS: DOCUSATE SODIUM 250 MG CAPSULE PO SCH (20:32)
[2017-12-20] MEDS: IV NS 1000 ML 1,000 ML IV PRN (21:49)
[2017-12-21] MEDS: VANCOMYCIN IV 1 G in PREMIXED 0 EACH IV SCH (03:09)
[2017-12-21 05:02] VITALS: BP 104/53
[2017-12-21] MEDS: PIPERACILLIN/TAZOBACTAM/D5W 2.25 G in PREMIXED 1 EACH IV SCH ×2 (05:20→13:17)
[2017-12-21] MEDS: PANTOPRAZOLE SODIUM 40 MG TABLET.DR PO SCH (06:03)
--- NOTE | 2017-12-21 06:23 | NUR ---
PATIENT SLEPT MOST OF THE NIGHT NO SOB NO CHEST PAIN, NO ADVERSE REACTION FROM ATIVAN FOR ANXIETY, IV SITE WAS CHANGES DUE TO LEAKAGE TOLERATE WELL. CONTINENT OF BLADDER AND BOWEL, USES URINAL, AND ASSIST X1 TO TOILET BUT NO BOWEL MOVEMENT NOTED, KEPT COMFORTABLE, CALL LIGHT WITHIN REACH.
[2017-12-21 07:06] LABS: BASOPHILS # (AUTO) 0.3 K/uL (0.0-8.0); BASOPHILS % (AUTO) 1.5 % (0.0-2.0); EOSINOPHILS # (AUTO) 0.6 K/uL (0.0-0.7); EOSINOPHILS % (AUTO) 2.6 % (0.0-7.0); HEMATOCRIT 33.2 % (36.7-47.1); HEMOGLOBIN 10.2 g/dL (12.5-16.3); LYMPHOCYTES # (AUTO) 1.7 K/uL (20.0-40.0); LYMPHOCYTES % (AUTO) 7.6 % (20.5-51.5); MEAN CORPUSCULAR HEMOGLOBIN 27.2 uug (23.8-33.4); MEAN CORPUSCULAR HGB CONC 31 g/dL (32.5-36.3); MEAN CORPUSCULAR VOLUME 87.9 fL (73.0-96.2); MONOCYTES # (AUTO) 1.2 K/uL (2.0-10.0); MONOCYTES % (AUTO) 5.3 % (0.0-11.0); NEUTROPHILS # (AUTO) 18.9 K/uL (1.8-8.9); PLATELET COUNT (AUTO) 578 K/uL (152-348); RED BLOOD CELL COUNT(AUTO) 3.77 MIL/uL (4.06-5.63); WHITE BLOOD COUNT (AUTO) 22.8 K/uL (3.6-10.2)
[2017-12-21 07:30] LABS: CARBON DIOXIDE 23 mmol/L (21-32); CHLORIDE 110 mmol/L (98-107); CREATININE 1.1 mg/dL (0.6-1.3); GLUCOSE 91 mg/dL (74-106); MAGNESIUM 1.9 mg/dL (1.8-2.4); PHOSPHOROUS 3.3 mg/dL (2.5-4.9); UREA NITROGEN, BLOOD 22 mg/dL (7-18)
[2017-12-21] MEDS: LACTOBACILLUS RHAMNOSUS GG 1 EACH CAPSULE PO SCH (08:12)
[2017-12-21] MEDS: ALLOPURINOL 100 MG TABLET PO SCH (08:12)
[2017-12-21] MEDS: ASPIRIN EC 81 MG TABLET.DR PO SCH (08:12)
[2017-12-21] MEDS: MULTIVITAMINS,THERAPEUTIC TABLET PO SCH (08:12)
[2017-12-21] MEDS: GABAPENTIN 400 MG CAPSULE PO SCH ×2 (08:17→13:12)
[2017-12-21] MEDS: SENNOSIDES 1 TABLET PO SCH (08:18)
--- NOTE | 2017-12-21 08:18 | NUR ---
PATIENT REFUSED NEURONTIN AND SENNA AT THIS TIME STATED WILL TAKE LATER IN THE DAY.
[2017-12-21] MEDS ORDERED: ASPIRIN EC 81 MG TABLET.DR PO SCH (09:00)
[2017-12-21 09:28] LABS: EOSINOPHILS % (MANUAL) 5 % (0-8); LYMPHOCYTES % (MANUAL) 16 % (20-40); MONOCYTES % (MANUAL) 1 % (2-10); NEUTROPHILS % (MANUAL) 78 % (42-75)
--- NOTE | 2017-12-21 12:01 | NUR ---
Clinical Pharmacy Note: Vancomycin Pharmacy to Dose Subjective: To continue vancomycin in this 82 y/o gentleman for indication of "suspected infection." (leukocytosis) Objective: weight 66kg height 175cm BUN 22 Scr 1.1 Wbc 22.8 temp 98.4 Assessment/Plan Will continue same dose of vanco 1gm IVPB q19h for today. 3rd dose is due today at 2300. Plan to draw vanco trough level before 4th dose (not yet ordered). Will monitor srcr & adjust the dose if needed. Will follow
[2017-12-21 12:03] VITALS: BP 126/68
[2017-12-21] MEDS ORDERED: LEVO500T2 PO (12:03)
[2017-12-21] MEDS ORDERED: AZIT250T PO (12:39)
--- NOTE | 2017-12-21 13:00 | NUR ---
PATIENT SEEN BY DR WOOD WITH ORDER TO DISCHARGE HOME TODAY AND PATIENT STATED THAT HIS WILL BE HERE AROUND 1400 TO PICK HIM UP.
[2017-12-21 15:27] VITALS: BP 129/69
--- NOTE | 2017-12-21 15:30 | NUR ---
PATIENT DISCHARGED PICKED UP BY HIS IN SATISFACTORY CONDITION WITH DISCHARGE INSTRUCTIONS AND PRESCRIPTIONS AND PATIENT INSTRUCTED TO CALL FOR A FOLLOW UP APPOINTMENT WITH HIS PRIMARY DOCTOR AND THEY EXPRESSED UNDERSTANDING.
== END 2017-12-21 15:30 | disposition home or self-care (01) | DRG 871 ==
LOC: ER 19:41 → TELE 23:07 → MED 12-20 20:00
PROVIDERS: ADMIT Internal Medicine; ATTEND Internal Medicine
DX: A41.9 Sepsis, unspecified organism (principal); N17.0 Acute kidney failure with tubular necrosis; J18.9 Pneumonia, unspecified organism; G62.9 Polyneuropathy, unspecified; I13.0 Hypertensive heart and chronic kidney disease with heart failure and stage 1 through stage 4 chronic kidney disease, or unspecified chronic kidney disease; I27.20 Pulmonary hypertension, unspecified; M48.02 Spinal stenosis, cervical region; I08.3 Combined rheumatic disorders of mitral, aortic and tricuspid valves; I50.32 Chronic diastolic (congestive) heart failure; N17.9 Acute kidney failure, unspecified; J98.11 Atelectasis; S06.9X9A Unspecified intracranial injury with loss of consciousness of unspecified duration, initial encounter; E86.0 Dehydration; D45 Polycythemia vera; D64.9 Anemia, unspecified; W18.12XA Fall from or off toilet with subsequent striking against object, initial encounter; Y93.89 Activity, other specified; Y92.002 Bathroom of unspecified non-institutional (private) residence as the place of occurrence of the external cause; R55 Syncope and collapse; Z86.73 Personal history of transient ischemic attack (TIA), and cerebral infarction without residual deficits; Z87.01 Personal history of pneumonia (recurrent); E78.5 Hyperlipidemia, unspecified; M50.30 Other cervical disc degeneration, unspecified cervical region; G25.81 Restless legs syndrome; M10.9 Gout, unspecified; N18.9 Chronic kidney disease, unspecified; K21.9 Gastro-esophageal reflux disease without esophagitis; Z98.1 Arthrodesis status; Z95.2 Presence of prosthetic heart valve; Z96.653 Presence of artificial knee joint, bilateral; Z79.899 Other long term (current) drug therapy; Z79.82 Long term (current) use of aspirin; S00.81XA Abrasion of other part of head, initial encounter; K29.70 Gastritis, unspecified, without bleeding; I45.10 Unspecified right bundle-branch block; G89.29 Other chronic pain
CPT/HCPCS: 36415; 70030-TC; 70450; 71045; 72125; 83605; 83735; 84100; 85025; 85730; 87040; 87086; 87400; 93005; A4217; A4663; A9150; J2405; J2543; J3370; J7030; J7060; J8499

== ENCOUNTER 2018-03-12 21:43 | Emergency (ER) | payer MEDICARE, BC ==
[~2018-03-12] VITALS: Ht 170.2 cm; Wt 63.5 kg
[~2018-03-12 21:43] MED LIST changes: -ACET325T53 PO; -ALBU2.5V7 NEB; -AMOX-430 PO; +AZIT250T PO; -FLUT1BLS IH; -IBUP-1953 PO
--- NOTE | 2018-03-12 22:03 | NUR ---
Dr. Jackson at bedside for MSE.
[2018-03-12] MEDS ORDERED: IV NORMAL SALINE 1000 ML BAG IV ONE (22:15)
--- NOTE | 2018-03-12 22:20 | NUR ---
Xray at bedside.
[2018-03-12 22:25] LABS: BASOPHILS # (AUTO) 0.4 K/uL (0.0-8.0); BASOPHILS % (AUTO) 1.2 % (0.0-2.0); EOSINOPHILS # (AUTO) 0.3 K/uL (0.0-0.7); EOSINOPHILS % (AUTO) 1.1 % (0.0-7.0); HEMOGLOBIN 10.6 g/dL (12.5-16.3); LYMPHOCYTES # (AUTO) 1.5 K/uL (20.0-40.0); LYMPHOCYTES % (AUTO) 4.9 % (20.5-51.5); MEAN CORPUSCULAR HEMOGLOBIN 26.1 uug (23.8-33.4); MEAN CORPUSCULAR HGB CONC 31 g/dL (32.5-36.3); MEAN CORPUSCULAR VOLUME 83.5 fL (73.0-96.2); MONOCYTES # (AUTO) 1.8 K/uL (2.0-10.0); MONOCYTES % (AUTO) 5.9 % (0.0-11.0); NEUTROPHILS # (AUTO) 27.1 K/uL (1.8-8.9); NEUTROPHILS % (AUTO) 86.9 % (38.5-71.5); PLATELET COUNT (AUTO) 981 K/uL (152-348); RED BLOOD CELL COUNT(AUTO) 4.08 MIL/uL (4.06-5.63)
[2018-03-12 22:32] LABS: WHITE BLOOD COUNT (AUTO) 31.1 K/uL (3.6-10.2)
--- NOTE | 2018-03-12 22:32 | NUR ---
Lab called, Pt WBC 31.1, notified.
[2018-03-12 22:39] LABS: ALANINE AMINOTRANSFERASE 25 U/L (16-63); ALKALINE PHOSPHATASE 101 U/L (50-136); ASPARTATE AMINOTRANSFERASE 20 U/L (15-37); BILIRUBIN,DIRECT 0.1 mg/dL (0.0-0.2); BILIRUBIN,TOTAL 0.5 mg/dL (0.2-1.0); CARBON DIOXIDE 22 mmol/L (21-32); CHLORIDE 104 mmol/L (98-107); CREATININE 1.2 mg/dL (0.6-1.3); GLUCOSE 85 mg/dL (74-106); LIPASE 78 U/L (73-393); POTASSIUM 4.2 mmol/L (3.5-5.1); TOTAL PROTEIN, SERUM 6.7 g/dL (6.4-8.2); UREA NITROGEN, BLOOD 29 mg/dL (7-18)
[2018-03-12 22:41] LABS: LYMPHOCYTES % (MANUAL) 9 % (20-40); MONOCYTES % (MANUAL) 2 % (2-10); NEUTROPHILS % (MANUAL) 89 % (42-75)
[2018-03-12 22:57] LABS: *BILIRUBIN,URIN NEGATIVE (NEGATIVE); *BLOOD, URINE NEGATIVE (NEGATIVE); *CLARITY,URINE CLEAR (CLEAR); *COLOR,URINE YELLOW (YELLOW); *KETONES,URINE NEGATIVE (NEGATIVE); *PROTEIN,URINE NEGATIVE (NEGATIVE); *UROBILINOGEN,URINE 0.2 E.U./dl (NORMAL); LEUKOCYTE ESTERASE ,URINE NEGATIVE (NEGATIVE); NITRITE, URINE NEGATIVE (NEGATIVE); UGLUCOSE NEGATIVE (NEGATIVE)
[2018-03-12 23:07] LABS: BACTERIA,URINE NONE SEEN /HPF (NONE SEEN); RBC,URINE NONE SEEN /HPF (0-3); SQUAMOUS EPITHELIAL CELL,UR FEW /HPF (NONE SEEN); WBC,URINE 0-3 /HPF (0-3)
--- NOTE | 2018-03-12 23:30 | NUR ---
Patient discharged to home in stable conditon. Written and verbal after care instructions given. Patient verbalizes understanding of instructions. Patient ambulated out of ER with steady gait, no acute signs of distress, VSS, all belongings taken, IV site discontinued.
[2018-03-12 23:48] VITALS: BP 130/71
== END 2018-03-12 23:30 | disposition home or self-care (01) ==
LOC: ER 21:46
DX: E86.0 Dehydration (principal); K21.9 Gastro-esophageal reflux disease without esophagitis; R79.1 Abnormal coagulation profile; Z88.2 Allergy status to sulfonamides; Z79.2 Long term (current) use of antibiotics; Z79.82 Long term (current) use of aspirin; Z79.899 Other long term (current) drug therapy
CPT/HCPCS: 36415; 70030-TC; 71045; 83690; 85025; 85730; 87086; 93005; A4663; J7030